=== PATIENT | female | born 1980 | race Hispanic/Latino ===

== ENCOUNTER 2022-10-22 21:56 | Emergency (ER) | payer MEDICAID, OTHER ==
[~2022-10-22] VITALS: Ht 152.4 cm; Wt 88.5 kg
[2022-10-22 22:01] VITALS: BP 167/86
[2022-10-22] MEDS ORDERED: SULF1TAB42 PO (22:46)
[2022-10-22] MEDS ORDERED: CEPH500B PO (22:46)
[2022-10-22] MEDS ORDERED: TETANUS/DIPHTHERIA TOXOID [ADULT] 0.5 ML VIAL IM ONE (22:57)
[2022-10-22] MEDS ORDERED: DIPH,PERTUSS(ACELL),TET VAC/PF 0.5 ML VIAL IM ONE (23:00)
== END 2022-10-22 23:01 | disposition home or self-care (01) ==
LOC: EDH 21:56
DX: L03.116 Cellulitis of left lower limb (principal); J45.909 Unspecified asthma, uncomplicated; E11.9 Type 2 diabetes mellitus without complications
CPT/HCPCS: 90471; 90714; 90715

== ENCOUNTER 2022-10-26 14:28 | Emergency (ER) | payer OTHER ==
[~2022-10-26] VITALS: Ht 147.3 cm; Wt 88.5 kg
[~2022-10-26 14:28] MED LIST: CEPH500B PO; SULF1TAB42 PO
[2022-10-26] MEDS ORDERED: CLINDAMYCIN IVPB 900MG/50ML 50 ML IV SCH (15:00)
[2022-10-26] MEDS ORDERED: 0.9%NACL 1000ML 1,000 ML IV ONE (15:00)
[2022-10-26 15:39] VITALS: BP 162/84
[2022-10-26 16:10] LABS: BASOPHILS % (AUTO) 0.5 % (0.0-5.0); EOSINOPHILS % (AUTO) 6.9 % (0.0-8.0); HEMATOCRIT 43.7 % (36-48); MEAN CORPUSCULAR HEMOGLOBIN 31.3 pg (27.0-33.0); MEAN CORPUSCULAR HGB CONC 35.7 g/dL (32.0-36.0); MEAN CORPUSCULAR VOLUME 87.6 fL (79-99); MONOCYTES % (AUTO) 6.2 % (3.0-13.0); PLATELET COUNT (AUTO) 276 K/uL (130-400); RED BLOOD CELL COUNT(AUTO) 4.99 MIL/uL (4.00-5.50); RED CELL DISTRIBUTION WIDTH 11.5 % (11.0-15.5); WHITE BLOOD COUNT (AUTO) 8.5 K/uL (4.8-10.8)
[2022-10-26] MEDS ORDERED: CLIN-141 PO (16:35)
[2022-10-26 16:53] LABS: CREATININE 0.8 mg/dL (0.5-1.5); POTASSIUM 3.8 mmol/L (3.5-5.1)
[2022-10-26 16:58] LABS: ALBUMIN 3.7 g/dL (3.5-5.0); TOTAL PROTEIN, SERUM 7.6 g/dL (6.0-8.3)
== END 2022-10-26 17:25 | disposition home or self-care (01) ==
LOC: EDH 14:28
DX: L02.416 Cutaneous abscess of left lower limb (principal); L03.116 Cellulitis of left lower limb; E11.9 Type 2 diabetes mellitus without complications; J45.909 Unspecified asthma, uncomplicated; Z90.49 Acquired absence of other specified parts of digestive tract; Z98.890 Other specified postprocedural states
CPT/HCPCS: 99285; 96365; 10060; 80053; 85025; 87040 ×2; 83605; 36415; 76882; J3490

== ENCOUNTER 2022-12-17 15:54 | Emergency (ER) | payer OTHER ==
[~2022-12-17] VITALS: Ht 149.9 cm; Wt 88.5 kg
[~2022-12-17 15:54] MED LIST changes: +CLIN-141 PO
[2022-12-17] MEDS ORDERED: KETOROLAC 15MG/ML VIAL (15MG/ML) IV ONE (16:30)
[2022-12-17 16:33] LABS: HEMATOCRIT 41.3 % (36-48); MEAN CORPUSCULAR HEMOGLOBIN 31.3 pg (27.0-33.0); MEAN CORPUSCULAR HGB CONC 35.6 g/dL (32.0-36.0); MEAN CORPUSCULAR VOLUME 87.9 fL (79-99); RED BLOOD CELL COUNT(AUTO) 4.7 MIL/uL (4.00-5.50); RED CELL DISTRIBUTION WIDTH 11.3 % (11.0-15.5); WHITE BLOOD COUNT (AUTO) 12.8 K/uL (4.8-10.8)
[2022-12-17 16:44] LABS: CREATININE 0.7 mg/dL (0.5-1.5)
[2022-12-17 16:48] LABS: ALBUMIN 3.7 g/dL (3.5-5.0); TOTAL PROTEIN, SERUM 7.3 g/dL (6.0-8.3)
[2022-12-17 17:20] LABS: APPEARANCE,URINE CLEAR (CLEAR); BILIRUBIN,URINE NEGATIVE (NEGATIVE); COLOR,URINE LIGHT-YELLOW (YELLOW); GLUCOSE, URINE (UA) >=1000 mg/dL (NEGATIVE); KETONES,URINE 20 mg/dL (NEGATIVE); LEUKOCYTE ESTERASE ,URINE NEGATIVE Leu/uL (NEGATIVE); NITRATE,URINE NEGATIVE (NEGATIVE); OCCULT BLOOD,URINE NEGATIVE (NEGATIVE); PROTEIN,URINE NEGATIVE (NEGATIVE); UROBILINOGEN,URINE 0.2 mg/dL (0.2-1.0)
[2022-12-17 17:28] LABS: BACTERIA,URINE RARE /HPF (None Seen); MUCUS,URINE RARE LPF (None Seen); SQUAMOUS EPITHELIAL CELL,UR RARE /HPF (0-2); WBC,URINE 0-1 /HPF (0-1)
[2022-12-17] MEDS ORDERED: MAGNESIUM 2GM PREMIX 50ML 50 ML IV SCH (17:30)
[2022-12-17] MEDS ORDERED: ONDA4TAB10 PO (17:36)
[2022-12-17 19:46] VITALS: BP 128/51
== END 2022-12-17 19:51 | disposition home or self-care (01) ==
LOC: EDH 15:54
DX: R20.2 Paresthesia of skin (principal); E83.42 Hypomagnesemia; R68.84 Jaw pain; J45.909 Unspecified asthma, uncomplicated; Z79.899 Other long term (current) drug therapy
CPT/HCPCS: 99284; 96365; 96366; 96375; 83735; 80053; 83690; 85027; 81001; 81025; 36415; J3475; J1885

== ENCOUNTER 2023-06-07 12:31 | Emergency (ER) | payer BC, OTHER ==
[~2023-06-07] VITALS: Ht 147.3 cm; Wt 88.5 kg
[~2023-06-07 12:31] MED LIST changes: +ONDA4TAB10 PO
[2023-06-07 12:46] VITALS: BP 188/92; PULSE 81; RESP 18
[2023-06-07] MEDS ORDERED: MORPHINE 4 MG SYG IM ONE (14:30)
[2023-06-07] MEDS ORDERED: GABA-529 PO (14:34)
[2023-06-07] MEDS ORDERED: PRED20TA3 PO (14:34)
[2023-06-07] MEDS ORDERED: [UNRECOGNIZED DRUG - CODE] OS (14:34)
== END 2023-06-07 14:44 | disposition home or self-care (01) ==
LOC: EDH 12:31
DX: G51.0 Bell's palsy (principal); J45.909 Unspecified asthma, uncomplicated; E11.9 Type 2 diabetes mellitus without complications
CPT/HCPCS: 99284; 96372; J2270

== ENCOUNTER 2024-08-13 18:57 | Emergency (ER) | payer BC ==
[~2024-08-13] VITALS: Ht 149.9 cm; Wt 99.8 kg
[~2024-08-13 18:57] MED LIST changes: +ATOR40TA69 PO; -CEPH500B PO; -CLIN-141 PO; +EMPA25TA PO; +INSU3INS3 SQ; +METF-444 PO; -ONDA4TAB10 PO; +PANT40TA54 PO; +SEMA1PEN3 SQ; -SULF1TAB42 PO
[2024-08-13] MEDS: HYDROcodone/acetaMINOPHEN 10/325 MG TAB PO ONE (20:03)
--- NOTE | 2024-08-13 21:15 | ERN ---
General Chief Complaint: Head Injury Stated Complaint: HEAD INJURY Time Seen by MD: 19:03 Time Seen by Midlevel: 19:03 Source: patient History of Present Illness Initial Comments Patient is a 44-year-old female being brought in by EMS for evaluation following a head injury. Patient states she had a trunk accidentally slammed on her head. No loss of consciousness is reported. Patient is not on any blood thinners. According to EMS patient had a small superficial laceration to the right parietal. No other symptoms reported at this Allergies: Coded Allergies: No Known Drug Allergies (Unverified Allergy, Unknown, 10/22/22) Home Meds Reported Medications Insulin Glargine,Hum.rec.anlog (Lantus Solostar) 100 Unit/Ml (3 Ml) Insuln.pen, 50 UNIT SQ HS for 30 Days, #15 ML 0 Refills 06/02/24 Semaglutide (Ozempic) 1 Mg/0.75 Ml (4 Mg/3 Ml) Pen.injctr, 0.25 MG SQ QWEEK for 30 Days, #3 ML 0 Refills OZEMPIC 0.25MG QWEEK(MONDAYS) PER PT ON HOLD UNTIL FURTHER ORDERS 06/02/24 Pantoprazole Sodium (Pantoprazole Sodium) 40 Mg Tablet.dr, 1 TAB PO DAILY for 30 Days, #30 TAB 0 Refills 06/02/24 Empagliflozin (Jardiance) 25 Mg Tablet, 1 TAB PO DAILY for 30 Days, #30 TAB 0 Refills 06/02/24 Metformin HCl (Metformin HCl) 500 Mg Tablet, 1 TAB PO BID for 30 Days, #60 TAB 0 Refills 06/02/24 Atorvastatin Calcium (LIPITOR) 40 Mg Tablet, 1 TAB PO DAILY for 30 Days, #30 TAB 0 Refills 06/02/24 Past Medical History Past Medical History: Diabetes-Type II, Hypertension Past Surgical History: Other, Surgical History Other: TUBAL LIGATION Social History Social History: Negative, Lives with family ROS Dictation CONSTITUTIONAL: Negative except for HPI HEAD/FACE: Negative except for HPI EENT: Negative except for HPI RESPIRATORY: Negative except for HPI GASTROINTESTINAL/ABDOMINAL: Negative except for HPI GENITOURINARY: Negative except for HPI MUSCULOSKELETAL: Negative except for HPI INTEGUMENTARY: Negative except for HPI NEUROLOGICAL/PSYCH: Negative except for HPI HEMATOLOGIC/LYMPHATIC: Negative except for HPI All Systems Negative, Except as noted above. 13 point review of systems assessed and all negative except for above. Physical Exam Physical Exam Dictation Vital Signs reviewed General Appearance: Alert, oriented x 3, no acute distress, well developed, nourished. Head and Face: non-traumatic. Eyes: PERRL, pink conjunctivas, eyelid no trauma, anterior chamber with arcus senilis. Ears: Pinnas intact and no signs of trauma or erythema ear canals clear and no discharge TM no erythema Nose: No discharge, no bleeding. Oropharynx: Mouth normal, tongue pink, pharynx clear,no erythema, tonsils no exudates, no abscesses noted, mucous membrane moist Neck: Supple, non-tender, no thyromegaly, no masses, no JVD, no bruits Breast:Deferred Chest:No tenderness, no crepitus, no paradoxical movement, no retractions Lungs:Clear, well-ventilated, symmetric, no rales, no wheezing, no rhonchi, no stridor, good breath sounds bilaterally Heart: Regular rate, regular rhythm, no murmur, no gallops Vascular: no peripheral edema, Abdomen: Soft, positive bowel sounds, nondistended, no guarding, nontender, no rebound, no masses no hepatomegaly, no splenomegaly, no Price's sign, no hernias. Rectal: Deferred Genital: Deferred Neurological: Normal speech, motor function intact, sensory function intact Musculoskeletal: Neck nontender, full range of motion, back nontender, full range of motion, Extremities: nontender, full range of motion Skin: Color pink, dry, no turgor, no rash, no lacerations, no abrasions, no contusions. Lymphatic: Deferred MDM MDM: Patient is a 44-year-old female being brought in by EMS for evaluation following a head injury. Patient states she had a trunk accidentally slammed on her head. No loss of consciousness is reported. Patient is not on any blood thinners. According to EMS patient had a small superficial laceration to the right parietal. No other symptoms reported at this. On physical examination there is a superficial laceration to the right parietal region. The laceration was thoroughly cleansed. No need for sutures or kervin at this time as laceration appears to be superficial. A CT scan of the brain was obtained which does not show any acute injury. Patient was observed in the ER for over 2 hours and has remained stable and asymptomatic. Patient will be discharged home with supportive management. Differential diagnosis: Closed head injury, concussion, subdural hematoma, intracranial bleed There are no social concerns with this patient. Prescription drug management Prescriptions will include: None Medical management and examination interpretation discussions were had by me with other qualified healthcare professionals as indicated for the patient's care. ED Course Orders Procedure Category Date Status Time Ct Head/Brain W/O CT 08/13/24 Resulted Contrast 19:09 Hydrocodone/Apap PHA 08/13/24 Complete 10/325 Tab ([place] 10) 20:00 Current Medications Medications (Trade) Dose Ordered Sig/Juan Luis Route PRN Reason Start Time Stop Time Status Last Admin Dose Admin Acetaminophen/ Hydrocodone Bitart (NORco 10) 1 tab ONCE ONCE PO 08/13/24 20:00 08/13/24 20:01 DC 08/13/24 20:03 Vital Signs Date Time Temp Pulse Resp B/P (MAP) Pulse Ox O2 Delivery O2 Flow Rate FiO2 08/13/24 21:53 97.0 84 20 124/89 98 Room Air* 0 21 08/13/24 20:56 97.2 92 18 118/84 98 Room Air* 0 21 08/13/24 19:45 97.9 99 20 124/86 98 Room Air* 0 21 08/13/24 18:58 98.2 76 16 165/86 98 Room Air [address] [address] IMAGING REPORT Signed PATIENT: EILEEN HERNANDES MR#: [id number] : 1980 SEX: F AGE: 44 LOCATION: ED ORDER 09 STATUS: REG ER REPORT#: [id number] SERVICE 08 REASON: head injury ORDERING PHYSICIAN: KENROY MURPHY PROCEDURE: HEAD WO - CT HEAD/BRAIN W/O CONTRAST CT HEAD/BRAIN W/O CONTRAST CLINICAL HISTORY: head injury COMPARISON: None TECHNIQUE: Multiple sequential axial images of the head were obtained from the base of the skull through vertex. CT was performed with one or more of the following dose reduction techniques: automated exposure control, adjustment of the mA and/or kV according to patient size, or use of iterative reconstruction technique FINDINGS: The brain parenchyma and CSF spaces are unremarkable. The orbital contents, paranasal sinuses and mastoid air cells are within normal limits. The calvarium is intact. IMPRESSION: Normal study DICTATED BY: MINERVA CASTILLO DO DATE: 08/13/242113 ELECTRONICALLY SIGNED BY: MINERVA CASTILLO DO DATE: 08/13/242117 DX & DISP Disposition: Discharge Departure Impression: Primary Impression: Closed head injury Condition: Stable Additional Instructions: Your CT scan does not show any evidence of a skull fracture or intracranial bleed. Please follow up with your primary care doctor in 2-3 days for repeat evaluation. Return to the ER for any new or worsening symptoms. Referrals: SELF,REFERRAL (PCP) I have reviewed the case, and I agree with, Diagnosis and Plan I performed the substantive portion of the visit. I have reviewed and personally made and approve the management plan that is documented in the note by myself or the BEREKET. I acknowledge for responsibility for the patient's management plan. KENROY MURPHY Aug 13, 2024 21:15
--- NOTE | 2024-08-13 21:18 | HMCIMG ---
CT HEAD/BRAIN W/O CONTRAST CLINICAL HISTORY: head injury COMPARISON: None TECHNIQUE: Multiple sequential axial images of the head were obtained from the base of the skull through vertex. CT was performed with one or more of the following dose reduction techniques: automated exposure control, adjustment of the mA and/or kV according to patient size, or use of iterative reconstruction technique FINDINGS: The brain parenchyma and CSF spaces are unremarkable. The orbital contents, paranasal sinuses and mastoid air cells are within normal limits. The calvarium is intact. IMPRESSION: Normal study
[2024-08-13 21:53] VITALS: BP 124/89; PULSE 84; RESP 20; TEMP 97; O2SAT 98
== END 2024-08-13 21:54 | disposition home or self-care (01) ==
LOC: EDH 18:57
DX: S09.8XXA Other specified injuries of head, initial encounter (principal); E11.9 Type 2 diabetes mellitus without complications; I10 Essential (primary) hypertension; Z79.84 Long term (current) use of oral hypoglycemic drugs; Z79.85 Long-term (current) use of injectable non-insulin antidiabetic drugs; Z79.899 Other long term (current) drug therapy; Z98.51 Tubal ligation status; W22.8XXA Striking against or struck by other objects, initial encounter; Y93.89 Activity, other specified; Y92.89 Other specified places as the place of occurrence of the external cause; Y99.8 Other external cause status
CPT/HCPCS: 70450; 99284

== ENCOUNTER 2024-09-30 08:09 | Observation (INO) | payer BC ==
[2024-09-28 13:25] LABS: BASOPHILS # (AUTO) 0.03 K/uL (0.00-0.20); BASOPHILS % (AUTO) 0.3 % (0.0-5.0); EOSINOPHILS # (AUTO) 0.46 K/uL (0.00-0.70); EOSINOPHILS % (AUTO) 4.6 % (0.0-8.0); HEMATOCRIT 45.2 % (36-48); IMMATURE GRANULOCYTE ABSOLUTE 0.03 K/uL (0-1); LYMPHOCYTES # (AUTO) 2.7 K/uL (1.0-4.8); LYMPHOCYTES % (AUTO) 26.2 % (21.0-51.0); MEAN CORPUSCULAR HEMOGLOBIN 31.1 pg (27.0-33.0); MEAN CORPUSCULAR HGB CONC 34.7 g/dL (32.0-36.0); MEAN CORPUSCULAR VOLUME 89.5 fL (79-99); MONOCYTES # (AUTO) 0.6 K/uL (0.1-1.0); MONOCYTES % (AUTO) 5.5 % (3.0-13.0); NEUTROPHILS # (AUTO) 6.4 K/uL (1.8-7.7); NEUTROPHILS % (AUTO) 63.1 % (40.0-77.0); PLATELET COUNT (AUTO) 231 K/uL (130-400); RED BLOOD CELL COUNT(AUTO) 5.05 MIL/uL (4.00-5.50); RED CELL DISTRIBUTION WIDTH 11.3 % (11.0-15.5); WHITE BLOOD COUNT (AUTO) 10.1 K/uL (4.8-10.8)
--- NOTE | 2024-09-28 13:25 | EKG ---
[facility] Test Date: 2024-09-28 Test Time: 14:13:28 Pat Name: EILEEN HERNANDES Department: [facility] Room: Gender: F Medical Detail Representative: [id number] : 1980 Requested By: JAGRUTI FRANCES Order Number: [id number] Reading MD: Jovanny Iqbal Measurements Intervals [place] Rate: 66 P: 26 W[place]: 166 QRS: 82 QRSD: 124 T: 32 QT: 448 QTc: 471 Interpretive Statements Sinus rhythm Nonspecific intraventricular conduction delay Compared to ECG 06/02/2024 10:22:14 Intraventricular conduction delay now present Left ventricular hypertrophy no longer present Early repolarization no longer present Electronically Signed On 09-29-2024 11:53:15 [facility] by Jovanny Iqbal Please click the below link to view image of tracing.
[2024-09-28 13:32] LABS: CREATININE 0.6 mg/dL (0.5-1.0); POTASSIUM 3.3 mmol/L (3.5-5.1)
[2024-09-28 13:44] VITALS: BP 128/76; PULSE 74; RESP 15; TEMP 97.3
[~2024-09-30] VITALS: Ht 147.3 cm; Wt 92.9 kg
[2024-09-30] VITALS (25 sets, daily range): BP systolic 117–155; BP diastolic 62–85; PULSE 53–81; RESP 14–20; TEMP 97.7–98.2; O2SAT 97–98
[2024-09-30] MEDS: BUPIvacaine/PF 0.5% 30ML VIAL ONE
[~2024-09-30 08:09] MED LIST changes: +BREYNA IH; +MONT-39 PO; -PANT40TA54 PO; -SEMA1PEN3 SQ; +VOQUEZNA PO
[2024-09-30] MEDS: metRONIDazole 500MG/100ML BAG 200 ML ONE (08:58)
[2024-09-30] MEDS: 0.9%NACL 1000ML 1,000 ML IV ONE (08:58)
[2024-09-30] MEDS: ceFAZolin SODIUM 2 GM VIAL ONE (08:58)
[2024-09-30] MEDS ORDERED: LIDOCAINE PF 100MG/5ML (2%) SYRINGE 5ML ONE (11:47)
[2024-09-30] MEDS ORDERED: proPOFol 10 MG/ML 20ML VIAL IV ONE (11:47)
[2024-09-30] MEDS ORDERED: rocuRONium bROMide 10MG/1ML 5ML VL ONE (11:47)
[2024-09-30] MEDS ORDERED: FENTanyl CITRate PF 50 MCG/1 ML 2ML VIAL ONE (11:48)
[2024-09-30] MEDS: INDOCYANINE GREEN 25 MG VIAL IJ ONE (12:42)
[2024-09-30] MEDS ORDERED: ketaMINE 50MG/ML SYRINGE 50 MG/ML DISP.SYRIN ONE (12:46)
[2024-09-30] MEDS ORDERED: NEOSTIGMINE METHYLSULFATE 1MG/ML IV ONE (13:40)
[2024-09-30] MEDS ORDERED: GLYCOPYRROLATE 0.2 MG/ML 5 ML VIAL ONE (13:40)
[2024-09-30] MEDS ORDERED: dexaMETHasone SOD PHOSPHATE 10MG/ML 1ML VIAL ONE (13:40)
[2024-09-30] MEDS ORDERED: ondanSETRON 4MG INJ ONE (13:40)
[2024-09-30] MEDS ORDERED: MIDAZOLAM HCL 1 MG/ML 2ML VIAL ONE (13:49)
--- NOTE | 2024-09-30 14:28 | OP ---
Operative Note: DATE OF PROCEDURE: 09/30/24 SURGEON: JAGRUTI FRANCES MD SILVERING DEPARTMENT SUPERVISOR: Dariel Frances MD ANESTHESIA: General and Local ANESTHESIOLOGIST/SENIOR RESEARCH ANALYST: [facility] [place] anesthesia team PREOPERATIVE DIAGNOSIS: Morbid obesity and associated comorbid conditions POSTOPERATIVE DIAGNOSIS: As above SYNOPSIS: Sleeve gastrectomy performed without incident PROCEDURE: 1. Robotic assisted sleeve gastrectomy 2. Omentoplasty to reinforce cut edge of the stomach 3. EGD ESTIMATED BLOOD LOSS: min, <30cc INDICATIONS: as above DESCRIPTION OF PROCEDURE: After standard precautions and preparations were undertaken a Veress needle and optical trocar were used to enter the abdominal cavity. All other instruments were placed under direct vision. The robotic system was docked in the standard fashion. We began our dissection by mobilizing the greater curve of the stomach. Once this was completed we passed a 40 Czech bougie down into the stomach to decompress the stomach and allow for proper sizing during the stapling portion of the case. A linear stapler with staple line reinforcement was used to initiate stapling. Care was taken to avoid tightening the incisura, twisting or turning of the body of the stomach, and avoid stapling onto the GE junction. When the stapling was complete the bougie was removed and the EGD was passed down in order to examined everybody the mucosal surface of the stomach. The stomach appeared well perfused and the size and shape of the stomach was appropriate. We insufflated under fluid with no signs of leak or problem. The scope was removed without incident. I performed an omentoplasty by suturing the nearby omentum to the cut edge of the stomach in order to reinforced the closure of the stomach and stabilize the free edge of the stomach. The partial gastrectomy specimen was removed from the lateral trocar site and the fascia was closed to prevent future hernia. At the end of the case all instrument counts were verified as correct including needles and sponges. JAGRUTI FRANCES MD Sep 30, 2024 14:28
[2024-09-30] MEDS: PROMETHAZINE HCL 25 MG/ML 1ML AMPULE IM ONE (14:55)
[2024-09-30] MEDS: ondanSETRON 4MG INJ ONE (14:55)
[2024-09-30] MEDS: MEPERIDINE-PF 50 MG/ML SYG ONE (14:57)
[2024-09-30] MEDS ORDERED: PROCHLORPERAZINE 10MG/2ML INJ IV PRN (15:00)
[2024-09-30] MEDS ORDERED: ENOXAPARIN SODIUM 30 MG/0.3 ML SQ SCH (15:00)
[2024-09-30] MEDS ORDERED: HYDROcod/acetaMINOPHEN 7.5/325 MG 15 ML UDCUP PO PRN (15:00)
[2024-09-30] MEDS ORDERED: hydroMORPHone 1 MG INJ IVP PRN (15:00)
--- NOTE | 2024-09-30 15:01 | PN ---
GENERAL SURGERY PROGRESS NOTE Date/Time Patient Seen: [09/30/2024, 1445 ] Problem List: [ ] Interval History: [Postop day 0. Pain tolerable with p.r.n. medication. ] Physical Examination: ABD: Incisions clean, dry and intact, Dermabond in place Vital Signs (last 8hr) Date Time Temp Pulse Resp B/P (MAP) Pulse Ox O2 Delivery O2 Flow Rate FiO2 09/30/24 14:34 97.7 55 17 124/74 100 Nonrebreathing Mask 10.0 09/30/24 08:30 97.9 76 16 133/76 98 Room Air Laboratory: [ ] Chemistry Labs: Test 09/30/24 14:42 Range/Units Whole Blood Glucose 122 H 70-110 MG/DL Diagnostics / Radiology: [Copy/Paste Echos/Imaging Report here] Impression and Plan: [Plan is for discharge home in the next day or two as long as patient tolerating p.o. intake, ambulatory and pain under control. Discussed with patient and family. They understand and agree. ] JAGRUTI FRANCES MD Sep 30, 2024 15:01
[2024-09-30] MEDS: metoCLOPRAmide 10 MG/2 ML VIAL ONE (15:41)
[2024-09-30] MEDS: ketOROlac 15MG/ML VIAL (15MG/ML) ONE (16:10)
[2024-09-30] MEDS: acetaMINOPHEN 100 ML ONE (17:37)
[2024-09-30] MEDS: FAMOTIDINE 20MG VIAL IV ONE (17:37)
[2024-09-30] MEDS: LACTATED RINGERS 1000ML 1,000 ML IV SCH (17:39)
[2024-09-30] MEDS: ENOXAPARIN SODIUM 40 MG/0.4 ML SYRINGE SQ SCH (17:52)
[2024-09-30] MEDS: ondanSETRON 4MG INJ IVP PRN (18:39)
[2024-09-30] MEDS: FAMOTIDINE 20MG VIAL IV SCH (19:32)
[2024-09-30] MEDS: ketOROlac 30MG VIAL (30MG/ML) IV PRN (23:33)
[2024-10-01 00:05] VITALS: BP 146/74; PULSE 56; RESP 19; TEMP 98.6
[2024-10-01 04:00] VITALS: BP 137/75; PULSE 60; RESP 18; TEMP 98.4
--- NOTE | 2024-10-01 04:00 | NUR ---
patient ambulated 600 feet with not discomfort.
--- NOTE | 2024-10-01 06:30 | NUR ---
patient ambulated 600 ft with no problems, no discomfort.
[2024-10-01 07:30] VITALS: O2SAT 96
[2024-10-01 08:00] VITALS: BP 139/72; PULSE 57; RESP 16; TEMP 98.2
--- NOTE | 2024-10-01 10:22 | DS ---
Problems: (1) Morbid (severe) obesity due to excess calories Discharge Summary Assessment Patient is a pleasant 44-year-old female status post vertical sleeve gastrectomy done by Dr. Eliel Lopez. The patient is awake alert and oriented x3 and resting comfortably in bed accompanied by spouse. The patient is tolerating a liquid diet very well without any upper or lower GI issues. Patient has been passing gas, voiding freely and ambulating. The patient is endorsing pain that is tolerable p.r.n. medications. Vital signs stable. Patient is clinically stable. The plan is to discharge the patient home today. Hospital Course Postoperative day 1 We will continue to monitor and treat pain as needed. GI/DVT prophylaxis recommended encouraged. Incision care, hydration, activity and dietary restrictions discussed with the patient. The patient understands and agrees. The plan is to discharge the patient home today follow up outpatient in 5-7 days. Postop meds sent by my office staff. KENROY YARBROUGH Oct 01, 2024 10:22
--- NOTE | 2024-10-01 10:30 | NUR ---
Order received and spoke to nurse who states patient has been walking in the halls. DC from PT no skilled need.
[2024-10-01 12:00] VITALS: BP 119/70; PULSE 58; RESP 17; TEMP 98.5
[2024-10-01] MEDS ORDERED: hydroMORPHone 0.5 MG SYG (0.5MG/0.5ML) IVP PRN (12:00)
[2024-10-01] MEDS ORDERED: ketOROlac 15MG/ML VIAL (15MG/ML) IV PRN (13:00)
--- NOTE | 2024-10-01 13:53 | NUR ---
Nutrition consult per Pt bariatric Reviewed labs, notes, and medications. in room during visit. Pt reported 50%PO intake, denied N/V, belching, good appetite, ordered MVI for bariatric, had RD visit, has PCP, has been walking around, talked to resident services coordinator. RD reviewed educational material for post-op diet recommendations. Pt was informed of importance of lifelong vitamin/mineral supplementation, choosing protein first during meals (pt was educated on higher protein requirements), choosing low calorie, sugar free, carbonated free and caffeine beverages. RD also informed pt on lifelong commitment to exercise and dietary recommendations for optimal success post surgery. RD encouraged getting blood work every 3 to 6 months, including B-vitamins, Pt verbalized understanding. RD informed Pt on moving around after procedure to prevent DVT, Pt verbalized understanding. Pt was encouraged to contact RD as questions arise and to attend support groups. Fair compliance suspected. Pt will benefit from outpatient bariatric dietitian follow up post procedure. Pt to follow up with PCP for labs. Recommendations: -Continue phase 1 bariatric diet for 1 week -Monitor electrolytes -Monitor diet tolerance -Monitor BM -Monitor wts -Monitor PO intake -Recommend Pt to follow up with PCP -Monitor goals of care RD available for consult per protocol Addendum: 10/01/24 at [address] Amended: Links added.
--- NOTE | 2024-10-01 16:50 | NUR ---
DCP - Patient discharged. Attempted to do IA, patient already discharged. Notified CM. Addendum: 10/01/24 at 1651 by MIGUEL NOONAN RN CM Amended: Links added.
== END 2024-10-01 15:30 | disposition home or self-care (01) ==
LOC: DAH 08:09 → 4CH 08:10 → INTOOBSV 08:10 → DAH 08:10
PROVIDERS: ADMIT Surgery; ATTEND Surgery
DX: E66.01 Morbid (severe) obesity due to excess calories (principal); R12 Heartburn; R10.10 Upper abdominal pain, unspecified; K29.70 Gastritis, unspecified, without bleeding; K76.0 Fatty (change of) liver, not elsewhere classified; F32.A Depression, unspecified; J45.909 Unspecified asthma, uncomplicated; E11.9 Type 2 diabetes mellitus without complications; I10 Essential (primary) hypertension; Z68.41 Body mass index [BMI] 40.0-44.9, adult; Z79.899 Other long term (current) drug therapy
CPT/HCPCS: 80048; 84703; 85025; 86850; 86900; 86901; 36415; 93005; 43775; 96374; 96372 ×2; 96375; 82948 ×5; 88312; 88307; 96376; A6260; S2900; G0378 ×3; A4663; A4215 ×2; J3490 ×7; J3010; J1100; J7030; J2550; J2003; J2250; J2704; J2405 ×3; J1885 ×3; J2710; J0665; J1650 ×2; J2175; J2765; J0690; A4930; A4223 ×2; A4213; A4222; A4221; A4216; A4600; J7120; 43235

== ENCOUNTER 2024-10-14 21:52 | Emergency (ER) | payer BC ==
[~2024-10-14] VITALS: Ht 147.3 cm; Wt 88.5 kg
--- NOTE | 2024-10-14 22:30 | ERN ---
General Chief Complaint: Mechanical Fall Stated Complaint: FALL Time Seen by MD: 21:57 Time Seen by Midlevel: 21:57 Source: patient History of Present Illness Initial Comments 44-year-old female who presents to the emergency department due to a fall that occurred approximately 8:30 p.m.. Patient reports she tripped and fell on the porch steps. Complaining of left hand pain, right knee pain, and abdominal pain. Patient had a gastric bypass performed two weeks ago on 09/30/[address] Lopez. The patient denies any nausea, vomiting, loss of consciousness, difficulty breathing, chest pain or further associated symptoms. PMHx DM, HTN Allergies: Coded Allergies: No Known Drug Allergies (Unverified Allergy, Unknown, 10/22/22) Home Meds Reported Medications Insulin Glargine,Hum.rec.anlog (Lantus Solostar) 100 Unit/Ml (3 Ml) Insuln.pen, 25 UNIT SQ DAILY, SYRINGE 09/28/24 [Breyna] No Conflict Check, 1 PUFF IH BID 09/28/24 Atorvastatin Calcium (LIPITOR) 40 Mg Tablet, 40 MG PO HS, TAB 09/28/24 Empagliflozin (Jardiance) 25 Mg Tablet, 25 MG PO DAILY, TAB 09/28/24 [Voquezna] No Conflict Check, 20 MG PO HS 09/28/24 Montelukast Sodium (Montelukast Sodium) 10 Mg Tablet, 10 MG PO HS, TAB 09/28/24 Metformin HCl (Metformin HCl) 500 Mg Tablet, 500 MG PO BID, TAB 09/28/24 Past Medical History Past Medical History: Diabetes-Type II, Hypertension Past Surgical History: Other, Bariatric Surgery, Surgical History Other: TUBAL LIGATION Social History Social History: Negative, Lives with family ROS Dictation Constitutional: Negative for fever,chills, and weight loss Eyes: Negative for injury, pain,redness, and discharge ENT: Negative for injury,pain or swelling Cardiovascular: Negative for chest pain, palpitations, and edema Respiratory: Negative for shortness of breath, cough, and wheezing, Abdomen/GI: Positive for abdominal pain Negative for abdominal pain, nausea, vomiting, diarrhea, and constipation Back: Negative for injury and pain : Negative for painful urination, bleeding or discharge MS/Extremity: Positive for left wrist pain, right knee pain Negative for injury and deformity Skin: Negative for rash, and discoloration Neuro: Negative for headache, weakness, numbness, tingling, and seizure Psych: Negative for suicide ideation, homicidal ideation, and hallucinations Physical Exam Physical Exam Dictation General: awake, alert, no acute distress Head/Face: Normocephalic, atraumatic Eyes: PERRL, EOMI, normal conjunctiva ENT: oral cavity clear, oral mucosa moist Neck: Supple, normal range of motion Cardiovascular: RRR, normal S1/S2 Respiratory: CTAB, no respiratory distress, no rales or wheezes Abdomen: Soft, generalized tenderness, non-distended, normal bowel sounds, no guarding or rebound. Skin: Warm, dry, normal turgor, no rash MS/Extremity: Pulses equal, no cyanosis, neurovascular intact, FROM. Full range of motion of the left wrist with mild tenderness to palpation. Full range of motion of the right knee mild tenderness to palpation to the lower aspect of the knee. No obvious deformities. Neuro: COAx4, GCS 15, strength 5/5, CN 2-12 intact, normal cerebellar exam, normal gait, Psych: Normal behavior, mood, and affect normal Results Laboratory and Microbiology Lab and Micro Result Laboratory Tests Test 10/14/24 22:55 White Blood Count 8.7 K/uL (4.8-10.8) Red Blood Count 4.31 MIL/uL (4.00-5.50) Hemoglobin 13.1 g/dL (12.0-16.0) Hematocrit 39.3 % (36-48) Mean Corpuscular Volume 91.2 fL (79-99) Mean Corpuscular Hemoglobin 30.4 pg (27.0-33.0) Mean Corpuscular Hemoglobin Concent 33.3 g/dL (32.0-36.0) Red Cell Distribution Width 11.7 % (11.0-15.5) Platelet Count 250 K/uL (130-400) Mean Platelet Volume 10.1 fL (7.5-10.5) Immature Granulocyte % (Auto) 0.1 % (0-1) Neutrophils (%) (Auto) 55.6 % (40.0-77.0) Lymphocytes (%) (Auto) 33.1 % (21.0-51.0) Monocytes (%) (Auto) 6.6 % (3.0-13.0) Eosinophils (%) (Auto) 4.4 % (0.0-8.0) Basophils (%) (Auto) 0.2 % (0.0-5.0) Neutrophils # (Auto) 4.8 K/uL (1.8-7.7) Lymphocytes # (Auto) 2.9 K/uL (1.0-4.8) Monocytes # (Auto) 0.6 K/uL (0.1-1.0) Eosinophils # (Auto) 0.38 K/uL (0.00-0.70) Basophils # (Auto) 0.02 K/uL (0.00-0.20) Absolute Immature Granulocyte (auto 0.01 K/uL (0-1) Nucleated Red Blood Cells 0.0 % (0.0-0.19) Sodium Level 140 mmol/L (136-145) Potassium Level 3.4 mmol/L (3.5-5.1) L Chloride Level 103 mmol/L (101-111) Carbon Dioxide Level 33 mmol/L (21-32) H Blood Urea Nitrogen 23 mg/dL (7-18) H Creatinine 0.7 mg/dL (0.5-1.0) Glomerular Filtration Rate Calc 110 mL/min (>90) Random Glucose 102 mg/dL (70-105) Total Calcium 9.1 mg/dL (8.5-10.1) Labs Reviewed?: Yes MDM MDM: Differential diagnosis: Rationale: 44-year-old female who presents to the emergency department due to a fall that occurred approximately 8:30 p.m.. Patient reports she tripped and fell on the porch steps. Complaining of left hand pain, right knee pain, and abdominal pain. Patient had a gastric bypass performed two weeks ago on 09/30/[address] Lopez. The patient denies any nausea, vomiting, loss of consciousness, difficulty breathing, chest pain or further associated symptoms. PMHx DM, HTN Labs obtained are within normal limits. X-rays of the left hand, wrist and right tibia fibula/knee were obtained with no indications of fractures or dislocations. Per physical examination patient has full range of motion of the left hand/wrist, right knee and lower extremity, able to apply weight with normal gait, neurovascularly intact, generalized abdominal tenderness. CT abdomen and pelvis obtained indicating 3 cm seroma at the right lower quadrant otherwise no acute findings noted. Patient was administered morphine in the ED and verbalized pain had improved. Advised to follow up with PCP. Return to the emergency department if any worsening symptoms. Patient verbalized understanding. Patient stable for discharge. There are no social concerns with this patient. I independently interpreted the test that were performed, results were reviewed by me and considered findings on radiology if ordered. Medical management and examination interpretation discussions were had by me with other qualified healthcare professionals as indicated for the patient's care. ED Course Orders Procedure Category Date Status Time Ct Abdomen/Pelvis CT 10/14/24 Resulted W/Contrast 22:06 Hand 3+Vws Lt RAD 10/14/24 Taken 22: Tibia/Fibula 2vws Rt RAD 10/14/24 Taken 22:06 Cbc With Differential LAB 10/14/24 Complete 22:06 Basic Metabolic Panel LAB 10/14/24 Complete 22:06 Morphine 2mg Syg PHA 10/14/24 Complete (Morphine 2mg Syg) 22:30 Ondansetron 4mg Inj PHA 10/14/24 Complete (Zofran 4mg Inj) 22:30 Iohexol (Omnipaque) PHA 10/14/24 Complete 23:23 Morphine 2mg Syg PHA 10/15/24 Complete (Morphine 2mg Syg) 01:00 Current Medications Medications (Trade) Dose Ordered Sig/Juan Luis Route PRN Reason Start Time Stop Time Status Last Admin Dose Admin Iohexol (Omnipaque) 35,000 mg STK-MED ONCE IV 10/14/24 23:23 10/14/24 23:23 DC Morphine Sulfate (morPHINE 2MG SYG) 2 mg ONCE ONCE IM 10/15/24 01:00 10/15/24 01:01 DC 10/15/24 01:01 Morphine Sulfate (morPHINE 2MG SYG) 2 mg ONCE ONCE IVP 10/14/24 22:30 10/14/24 22:31 DC 10/14/24 22:54 Ondansetron HCl (zoFRAN 4MG INJ) 4 mg ONCE ONCE IVP 10/14/24 22:30 10/14/24 22:31 DC 10/14/24 22:54 Vital Signs Date Time Temp Pulse Resp B/P (MAP) Pulse Ox O2 Delivery O2 Flow Rate FiO2 10/15/24 01:02 98.6 66 18 130/70 100 Room Air* 0 21 3/6/25 21:53 97.9 87 20 130/98 99 Room Air DX & DISP Disposition: Discharge Departure Impression: Primary Impression: Fall Additional Impression: Wellness examination Condition: Stable Additional Instructions: Discharge home. Rest. Follow up with primary care DrRocio in 24 hours. Return to the ER for any acute changes or worsening symptoms. If any medications were prescribed take as directed. Okay to continue home medications unless otherwise discussed during your visit in the emergency room today. Patient was also advised to follow-up with primary care physician in 1 to 2 days for continued monitoring. Referrals: ADOLFO BAZAN PA-C (PCP) I performed the substantive portion of the visit. I have reviewed and personally made and approve the management plan that is documented in the notes by myself or the BEREKET. I acknowledge full responsibility for the patient's management plan. MILTON ROBBINS Oct 14, 2024 22:30
[2024-10-14] MEDS: morPHINE 2 MG SYG IVP ONE (22:54)
[2024-10-14] MEDS: ondanSETRON 4MG INJ IVP ONE (22:54)
[2024-10-14 23:14] LABS: BASOPHILS # (AUTO) 0.02 K/uL (0.00-0.20); BASOPHILS % (AUTO) 0.2 % (0.0-5.0); EOSINOPHILS # (AUTO) 0.38 K/uL (0.00-0.70); EOSINOPHILS % (AUTO) 4.4 % (0.0-8.0); HEMATOCRIT 39.3 % (36-48); IMMATURE GRANULOCYTE ABSOLUTE 0.01 K/uL (0-1); LYMPHOCYTES # (AUTO) 2.9 K/uL (1.0-4.8); LYMPHOCYTES % (AUTO) 33.1 % (21.0-51.0); MEAN CORPUSCULAR HEMOGLOBIN 30.4 pg (27.0-33.0); MEAN CORPUSCULAR HGB CONC 33.3 g/dL (32.0-36.0); MEAN CORPUSCULAR VOLUME 91.2 fL (79-99); MONOCYTES # (AUTO) 0.6 K/uL (0.1-1.0); MONOCYTES % (AUTO) 6.6 % (3.0-13.0); NEUTROPHILS # (AUTO) 4.8 K/uL (1.8-7.7); NEUTROPHILS % (AUTO) 55.6 % (40.0-77.0); PLATELET COUNT (AUTO) 250 K/uL (130-400); RED BLOOD CELL COUNT(AUTO) 4.31 MIL/uL (4.00-5.50); RED CELL DISTRIBUTION WIDTH 11.7 % (11.0-15.5); WHITE BLOOD COUNT (AUTO) 8.7 K/uL (4.8-10.8)
[2024-10-14 23:22] LABS: CREATININE 0.7 mg/dL (0.5-1.0); POTASSIUM 3.4 mmol/L (3.5-5.1)
[2024-10-14] MEDS ORDERED: IOHEXOL 350 MG/ML 100ML INFUS..BTL IV ONE (23:23)
--- NOTE | 2024-10-15 00:20 | HMCIMG ---
CT ABDOMEN/PELVIS W/CONTRAST HISTORY: Status post fall COMPARISON: 05/30/2024 TECHNIQUE: Multiple sequential axial images of the abdomen and pelvis were obtained from the dome of the diaphragm through symphysis pubis. Patient was given 100 cc of through intravenous route. Oral contrast was not given. FINDINGS: No pleural effusion is seen bilaterally. There is no evidence of parenchymal disease or pulmonary nodule of the visualized lower lungs. Degenerative changes of the thoracolumbar spine are present. The heart is not enlarged. Liver is enlarged and fatty changes measuring 22 cm. There is right hepatic cyst measuring 2.7 cm. The liver, spleen, adrenal glands and pancreas are unremarkable. There is no evidence of hydronephrosis bilaterally. No evidence of renal stone is seen. Fecal material is seen in the colon. There are normal size retroperitoneal and mesenteric lymph nodes. No ascites is seen. Atherosclerotic changes are present. Pelvic sidewalls are symmetric bilaterally. Bladder is poorly distended. There is fluid-filled structure measuring 3 cm in the right anterior lower abdominal wall suggestive of seroma. There is diverticulosis. IMPRESSION: 1. There is fluid-filled structure measuring 3 cm in the right anterior lower abdominal wall suggestive of seroma. There is diverticulosis. No ascites. CT was performed with one or more following dose reduction techniques: automated exposure control, adjustment of the mA and kv according to patient's size, or use of a iterative reconstruction technique.
[2024-10-15] MEDS: morPHINE 2 MG SYG IM ONE (01:01)
[2024-10-15 01:02] VITALS: BP 130/70; PULSE 66; RESP 18; TEMP 98.6; O2SAT 100
--- NOTE | 2024-10-15 09:39 | HMCIMG ---
LEFT HAND RADIOGRAPHS - 3 VIEWS INDICATION: Pain after fall COMPARISON: None FINDINGS: AP, lateral, and oblique views. No acute fracture of subluxation identified. Scaphoid bone is intact. Carpal alignment and ulnar variance is within normal limits. No radiopaque foreign body noted. IMPRESSION: No evidence for fracture or subluxation.
--- NOTE | 2024-10-15 09:40 | HMCIMG ---
RIGHT TIBIA AND FIBULA RADIOGRAPHS - 2 VIEWS INDICATION: Pain COMPARISON: None. FINDINGS: AP and lateral views. No acute fracture or subluxation identified. 4 mm chronic well-corticated loose ossific body within the posterior recess of the right knee joint midline. Subcentimeter plantar calcaneal spur. IMPRESSION: No evidence for fracture or dislocation.
== END 2024-10-15 01:18 | disposition home or self-care (01) ==
LOC: EDH 21:52
DX: M25.561 Pain in right knee (principal); M79.642 Pain in left hand; E11.9 Type 2 diabetes mellitus without complications; I10 Essential (primary) hypertension; Z79.4 Long term (current) use of insulin; Z79.84 Long term (current) use of oral hypoglycemic drugs; Z98.51 Tubal ligation status; Z98.84 Bariatric surgery status; W10.8XXA Fall (on) (from) other stairs and steps, initial encounter; Y93.89 Activity, other specified; Y92.89 Other specified places as the place of occurrence of the external cause; Y99.8 Other external cause status
CPT/HCPCS: 99284; 74177; 96374; 96375; 80048; 85025; 36415; 73130; 73590; 96372; J2270 ×2; J2405; Q9967

== ENCOUNTER 2024-11-28 23:11 | Emergency (ER) | payer BC ==
[~2024-11-28] VITALS: Ht 149.9 cm; Wt 77.1 kg
--- NOTE | 2024-11-28 23:13 | NUR ---
COVID, FLU AND STREP SWABS COLLECTED AND SENT
[2024-11-28 23:36] LABS: RAPID GROUP A STREP negative (NEGATIVE)
[2024-11-28 23:39] LABS: SARS-CoV-2, RNA, NAAT NEGATIVE SARS CoV-2 (NEGATIVE)
[2024-11-28 23:46] LABS: INFLUENZA TYPE A Negative For Type A (NEGATIVE); INFLUENZA TYPE B Negative For Type B (NEGATIVE)
[2024-11-29] MEDS: dexaMETHasone SOD PHOSPHATE 4 MG/ML 1ML VIAL IM ONE (00:07)
[2024-11-29 00:23] LABS: CREATININE 0.9 mg/dL (0.5-1.0); POTASSIUM 3.3 mmol/L (3.5-5.1)
[2024-11-29 00:34] LABS: BASOPHILS # (AUTO) 0.02 K/uL (0.00-0.20); BASOPHILS % (AUTO) 0.3 % (0.0-5.0); EOSINOPHILS # (AUTO) 0.38 K/uL (0.00-0.70); EOSINOPHILS % (AUTO) 6.3 % (0.0-8.0); HEMATOCRIT 40.6 % (36-48); IMMATURE GRANULOCYTE ABSOLUTE 0.01 K/uL (0-1); LYMPHOCYTES # (AUTO) 1.4 K/uL (1.0-4.8); LYMPHOCYTES % (AUTO) 23.3 % (21.0-51.0); MEAN CORPUSCULAR VOLUME 91.4 fL (79-99); MONOCYTES # (AUTO) 0.4 K/uL (0.1-1.0); MONOCYTES % (AUTO) 7.1 % (3.0-13.0); NEUTROPHILS # (AUTO) 3.8 K/uL (1.8-7.7); NEUTROPHILS % (AUTO) 62.8 % (40.0-77.0); PLATELET COUNT (AUTO) 175 K/uL (130-400); RED BLOOD CELL COUNT(AUTO) 4.44 MIL/uL (4.00-5.50); RED CELL DISTRIBUTION WIDTH 12.1 % (11.0-15.5)
[2024-11-29 00:35] LABS: APPEARANCE,URINE CLEAR (CLEAR); BILIRUBIN,URINE NEGATIVE (NEGATIVE); COLOR,URINE YELLOW (YELLOW); GLUCOSE, URINE (UA) NEGATIVE (NEGATIVE); KETONES,URINE NEGATIVE (NEGATIVE); LEUKOCYTE ESTERASE ,URINE NEGATIVE Leu/uL (NEGATIVE); NITRATE,URINE NEGATIVE (NEGATIVE); PROTEIN,URINE NEGATIVE (NEGATIVE); UROBILINOGEN,URINE 0.2 mg/dL (0.2-1.0)
[2024-11-29 00:40] LABS: ADD UA MICROSCOPIC YES; BACTERIA,URINE RARE /HPF (None Seen); MUCUS,URINE RARE LPF (None Seen); SQUAMOUS EPITHELIAL CELL,UR FEW /HPF (0-2)
[2024-11-29] MEDS ORDERED: METH4TAB3 PO (00:52)
[2024-11-29] MEDS ORDERED: BENZ-39 PO (00:52)
--- NOTE | 2024-11-29 00:54 | ERN ---
General Chief Complaint: Flu Symptoms Stated Complaint: FEVER, BODYACHES, CHILLS Time Seen by MD: 23:15 Time Seen by Midlevel: 23:15 Source: patient History of Present Illness Initial Comments Patient is an 44-year-old female who presents to the emergency department for evaluation of flu-like symptoms that started three days ago. Symptoms consist of chills, dry cough, body aches, and some mild shortness of breath. Three other people in her household have similar symptoms. She reports self medicating with azithromycin and some amoxicillin with no improvement. Allergies: Coded Allergies: No Known Drug Allergies (Unverified Allergy, Unknown, 10/22/22) Home Meds Reported Medications Insulin Glargine,Hum.rec.anlog (Lantus Solostar) 100 Unit/Ml (3 Ml) Insuln.pen, 25 UNIT SQ DAILY, SYRINGE 09/28/24 [Breyna] No Conflict Check, 1 PUFF IH BID 09/28/24 Atorvastatin Calcium (LIPITOR) 40 Mg Tablet, 40 MG PO HS, TAB 09/28/24 Empagliflozin (Jardiance) 25 Mg Tablet, 25 MG PO DAILY, TAB 09/28/24 [Voquezna] No Conflict Check, 20 MG PO HS 09/28/24 Montelukast Sodium (Montelukast Sodium) 10 Mg Tablet, 10 MG PO HS, TAB 09/28/24 Metformin HCl (Metformin HCl) 500 Mg Tablet, 500 MG PO BID, TAB 09/28/24 Past Medical History Past Medical History: Asthma, Diabetes-Type II, Hypertension, Other Medical History Other: MRSA Past Surgical History: Appendectomy, Other, BTL, Bariatric Surgery, Surgical History Other: TUBAL LIGATION Social History Social History: Negative, Lives with family Female( History) LMP: Nov 14, 2024 ROS Dictation CONSTITUTIONAL: Negative except for HPI HEAD/FACE: Negative except for HPI EENT: Negative except for HPI RESPIRATORY: Negative except for HPI GASTROINTESTINAL/ABDOMINAL: Negative except for HPI GENITOURINARY: Negative except for HPI MUSCULOSKELETAL: Negative except for HPI INTEGUMENTARY: Negative except for HPI NEUROLOGICAL/PSYCH: Negative except for HPI HEMATOLOGIC/LYMPHATIC: Negative except for HPI All Systems Negative, Except as noted above. 13 point review of systems assessed and all negative except for above. Physical Exam Physical Exam Dictation Vital Signs reviewed General Appearance: Alert, oriented x 3, no acute distress, well developed, nourished. Head and Face: non-traumatic. Eyes: PERRL, pink conjunctivas, eyelid no trauma, anterior chamber with arcus senilis. Ears: Pinnas intact and no signs of trauma or erythema ear canals clear and no discharge TM no erythema Nose: No discharge, no bleeding. Oropharynx: Mouth normal, tongue pink, pharynx clear,no erythema, tonsils no exudates, no abscesses noted, mucous membrane moist Neck: Supple, non-tender, no thyromegaly, no masses, no JVD, no bruits Breast:Deferred Chest:No tenderness, no crepitus, no paradoxical movement, no retractions Lungs:Clear, well-ventilated, symmetric, no rales, no wheezing, no rhonchi, no stridor, good breath sounds bilaterally Heart: Regular rate, regular rhythm, no murmur, no gallops Vascular: no peripheral edema, Abdomen: Soft, positive bowel sounds, nondistended, no guarding, nontender, no rebound, no masses no hepatomegaly, no splenomegaly, no Price's sign, no hernias. Rectal: Deferred Genital: Deferred Neurological: Normal speech, motor function intact, sensory function intact Musculoskeletal: Neck nontender, full range of motion, back nontender, full range of motion, Extremities: nontender, full range of motion Skin: Color pink, dry, no turgor, no rash, no lacerations, no abrasions, no contusions. Lymphatic: Deferred Results Laboratory and Microbiology Lab and Micro Result Laboratory Tests Test 11/28/24 23:15 11/29/24 00:07 11/29/24 00:25 Influenza Type A Antigen Negative For Type A Influenza Type B Antigen Negative For Type B SARS-CoV-2, RNA, NAAT NEGATIVE SARS CoV-2 Group A Streptococcus Rapid negative (NEGATIVE) White Blood Count 6.0 K/uL (4.8-10.8) Red Blood Count 4.44 MIL/uL (4.00-5.50) Hemoglobin 14.2 g/dL (12.0-16.0) Hematocrit 40.6 % (36-48) Mean Corpuscular Volume 91.4 fL (79-99) Mean Corpuscular Hemoglobin 32.0 pg (27.0-33.0) Mean Corpuscular Hemoglobin Concent 35.0 g/dL (32.0-36.0) Red Cell Distribution Width 12.1 % (11.0-15.5) Platelet Count 175 K/uL (130-400) Mean Platelet Volume 10.2 fL (7.5-10.5) Immature Granulocyte % (Auto) 0.2 % (0-1) Neutrophils (%) (Auto) 62.8 % (40.0-77.0) Lymphocytes (%) (Auto) 23.3 % (21.0-51.0) Monocytes (%) (Auto) 7.1 % (3.0-13.0) Eosinophils (%) (Auto) 6.3 % (0.0-8.0) Basophils (%) (Auto) 0.3 % (0.0-5.0) Neutrophils # (Auto) 3.8 K/uL (1.8-7.7) Lymphocytes # (Auto) 1.4 K/uL (1.0-4.8) Monocytes # (Auto) 0.4 K/uL (0.1-1.0) Eosinophils # (Auto) 0.38 K/uL (0.00-0.70) Basophils # (Auto) 0.02 K/uL (0.00-0.20) Absolute Immature Granulocyte (auto 0.01 K/uL (0-1) Nucleated Red Blood Cells 0.0 % (0.0-0.19) Sodium Level 143 mmol/L (136-145) Potassium Level 3.3 mmol/L (3.5-5.1) L Chloride Level 104 mmol/L (101-111) Carbon Dioxide Level 31 mmol/L (21-32) Blood Urea Nitrogen 13 mg/dL (7-18) Creatinine 0.9 mg/dL (0.5-1.0) Glomerular Filtration Rate Calc 81 mL/min (>90) Random Glucose 107 mg/dL (70-105) H Total Calcium 8.7 mg/dL (8.5-10.1) Urine Color YELLOW (YELLOW) Urine Appearance CLEAR (CLEAR) Urine pH 6.0 (5.0-8.0) Urine Specific [place] 1.026 (1.001-1.031) Urine Protein NEGATIVE mg/dL (NEGATIVE) Urine Glucose (UA) NEGATIVE mg/dL (NEGATIVE) Urine Ketones NEGATIVE mg/dL (NEGATIVE) Urine Occult Blood +- (TRACE) (NEGATIVE) H Urine Nitrate NEGATIVE (NEGATIVE) Urine Bilirubin NEGATIVE mg/dL (NEGATIVE) Urine Urobilinogen 0.2 mg/dL (0.2-1.0) Urine Leukocyte Esterase NEGATIVE Emile/uL Urine RBC 2-5 /HPF (0-1) H Urine WBC 2-5 /HPF (0-1) H Urine Squamous Epithelial Cells FEW /HPF (0-2) Urine Bacteria RARE /HPF (None Seen) Labs Reviewed?: Yes MDM MDM: Differential diagnosis: Viral syndrome, upper respiratory infection, pneumonia There are no social concerns with this patient. Prescription drug management Prescriptions will include: Medrol pack, Tessalon Perles Medical management and examination interpretation discussions were had by me with other qualified healthcare professionals as indicated for the patient's care. ED Course Orders Procedure Category Date Status Time Covid Rna Naat LAB 11/28/24 Complete 23:13 Influenza Type A & B, LAB 11/28/24 Complete Rapid 23:13 Rapid (Group A Strep) LAB 11/28/24 Complete 23:13 Chest 1vw RAD 11/28/24 Taken 23:52 Cbc With Differential LAB 11/28/24 Complete 23:52 Basic Metabolic Panel LAB 11/28/24 Complete 23:52 Urinalysis Profile LAB 11/28/24 Complete 23:52 Dexamethasone 4mg/Ml PHA 11/29/24 Complete 1ml Vial (Dexametha 00:00 Current Medications Medications (Trade) Dose Ordered Sig/Juan Luis Route PRN Reason Start Time Stop Time Status Last Admin Dose Admin Dexamethasone Sodium Phosphate (dexaMETHasone 4MG/ML 1ML VIAL) 4 mg ONCE ONCE IM 11/29/24 00:00 11/29/24 00:01 DC 11/29/24 00:07 Vital Signs Date Time Temp Pulse Resp B/P (MAP) Pulse Ox O2 Delivery O2 Flow Rate FiO2 11/29/24 00:21 100.2 102 18 136/84 98 Room Air* 0 21 11/28/24 23:12 100.2 102 20 139/99 96 Room Air DX & DISP Disposition: Discharge Departure Impression: Primary Impression: Viral illness Additional Impression: Upper respiratory infection Condition: Stable Scripts Benzonatate (Tessalon Perles) 100 Mg Cap 100 MG PO TID for cough, #30 CAP 0 Refills Prov: KENROY MURPHY 11/29/24 Methylprednisolone (Medrol) 4 Mg Tab.ds.pk 1 TAB PO AD for 6 Days, #21 TAB 0 Refills 6 on day 1 then reduce by one tablet daily until gone Prov: KENROY MURPHY 11/29/24 Additional Instructions: Your blood work today is unremarkable. You have tested negative for influenza a, influenza B, COVID-19, and strep. Your chest x-ray does not show any evidence of pneumonia. Your symptoms are most likely viral in nature. Follow up with your primary care doctor in 2-3 days for repeat evaluation. Referrals: SELF,REFERRAL (PCP) I have reviewed the case, and I agree with, Diagnosis and Plan I performed the substantive portion of the visit. I have reviewed and personally made and approve the management plan that is documented in the note by myself or the BEREKET. I acknowledge for responsibility for the patient's management plan. KENROY MURPHY Nov 29, 2024 00:54
[2024-11-29 01:25] VITALS: BP 128/76; PULSE 106; RESP 20; TEMP 99; O2SAT 99
--- NOTE | 2024-11-29 08:59 | HMCIMG ---
CHEST 1VW HISTORY: Pneumonia COMPARISON: None FINDINGS: A frontal projection of the chest was obtained. Mild left lung pulmonary infiltrates are seen. The heart is borderline enlarged. Mild degenerative changes are seen. No evidence of aortic calcification is seen. IMPRESSION: 1. Mild left lung pulmonary infiltrates
== END 2024-11-29 01:37 | disposition home or self-care (01) ==
LOC: EDH 23:11
DX: J06.9 Acute upper respiratory infection, unspecified (principal); B34.9 Viral infection, unspecified; E11.9 Type 2 diabetes mellitus without complications; I10 Essential (primary) hypertension; J45.909 Unspecified asthma, uncomplicated; Z20.822 Contact with and (suspected) exposure to COVID-19; Z79.4 Long term (current) use of insulin; Z79.84 Long term (current) use of oral hypoglycemic drugs; Z90.49 Acquired absence of other specified parts of digestive tract; Z98.51 Tubal ligation status; Z98.890 Other specified postprocedural states
CPT/HCPCS: 99284; 71045; 87635; 80048; 85025; 87880; 87804 ×2; 81001; 36415; 96372; J1100

== ENCOUNTER 2025-03-09 23:54 | Emergency (ER) | payer BC ==
[~2025-03-09] VITALS: Ht 147.3 cm; Wt 87.1 kg
[~2025-03-09 23:54] MED LIST changes: +BENZ-39 PO; +METH4TAB3 PO
--- NOTE | 2025-03-10 00:06 | ERN ---
ED Note History of Present Illness Stated Complaint: C/O ABD PAIN RADIATING TO BACK WITH NAUSEA Chief Complaint: Abdominal Pain Time Seen by MD: 23:55 Time Seen by Midlevel: 23:55 Dictation: The patient is a 44-year-old female with a history of diabetes, gastric bypass in September 30, 2024 who presents to the emergency department with complaints of epigastric abdominal pain that radiates to the back associated with nausea nonbloody vomiting. Patient reports she had a bowel movement today. Denies any fevers. Allergies: Coded Allergies: No Known Drug Allergies (Unverified Allergy, Unknown, 10/22/22) Home Meds Active Scripts Benzonatate (Tessalon Perles) 100 Mg Cap, 100 MG PO TID for cough, #30 CAP 0 Refills Prov:KENROY MURPHY 11/29/24 Methylprednisolone (Medrol) 4 Mg Tab.ds.pk, 1 TAB PO AD for 6 Days, #21 TAB 0 Refills 6 on day 1 then reduce by one tablet daily until gone Prov:KENROY MURPHY 11/29/24 Reported Medications Insulin Glargine,Hum.rec.anlog (Lantus Solostar) 100 Unit/Ml (3 Ml) Insuln.pen, 25 UNIT SQ DAILY, SYRINGE 09/28/24 [Breyna] No Conflict Check, 1 PUFF IH BID 09/28/24 Atorvastatin Calcium (LIPITOR) 40 Mg Tablet, 40 MG PO HS, TAB 09/28/24 Empagliflozin (Jardiance) 25 Mg Tablet, 25 MG PO DAILY, TAB 09/28/24 [Voquezna] No Conflict Check, 20 MG PO HS 09/28/24 Montelukast Sodium (Montelukast Sodium) 10 Mg Tablet, 10 MG PO HS, TAB 09/28/24 Metformin HCl (Metformin HCl) 500 Mg Tablet, 500 MG PO BID, TAB 09/28/24 Past Medical History Past Medical History: Diabetes-Type II Additional Past Medical Hx: MRSA Surgical History: Other Surgical History Other: GASTRIC SLEEVE Social History: Negative, Lives with family LMP: Mar 05, 2025 RN Note Reviewed/Agreed w/PFSH: Yes Review of System Dictation Constitutional: Negative for fever,chills, and weight loss Eyes: Negative for injury, pain,redness, and discharge ENT: Negative for injury,pain or swelling Cardiovascular: Negative for chest pain, palpitations, and edema Respiratory: Negative for shortness of breath, cough, and wheezing, Abdomen/GI: Negative for diarrhea, and constipation positive for abdominal pain, nausea, vomiting, Back: Negative for injury and pain : Negative for injury, bleeding and discharge MS/Extremity: Negative for injury and deformity Skin: Negative for rash, and discoloration Neuro: Negative for headache, weakness, numbness, tingling, and seizure Psych: Negative for suicide ideation, homicidal ideation, and hallucinations Initial Vital Sign VS Vital Signs Date Time Temp Pulse Resp B/P (MAP) Pulse Ox O2 Delivery O2 Flow Rate FiO2 03/09/25 23:55 97.9 75 20 142/86 99 Room Air 03/10/25 00:28 0 21 Physical Exam Dictation Vital Signs reviewed General Appearance: Alert, oriented x 3, no acute distress, well developed, nourished. Head and Face: non-traumatic. Eyes: PERRL, pink conjunctivas, eyelid no trauma, anterior chamber with arcus senilis. Ears: Pinnas intact and no signs of trauma or erythema ear canals clear and no discharge TM no erythema Nose: No discharge, no bleeding. Oropharynx: Mouth normal, tongue pink. pharynx clear,no erythema, tonsils no exudates, no abscesses noted, mucous membrane moist Neck: Supple, non-tender, no thyromegaly, no masses, no JVD, no bruits Breast:Deferred Chest:No tenderness, no crepitus, no paradoxical movement, no retractions Lungs:Clear, well-ventilated, symmetric, no rales, no wheezing, no rhonchi, no stridor, good breath sounds bilaterally Heart: Regular rate, regular rhythm, no murmur, no gallops Vascular: no peripheral edema, Abdomen: Soft, positive bowel sounds, nondistended, no guarding, Generalized tenderness, no rebound, no masses no hepatomegaly, no splenomegaly, no Price's sign, no hernias. Rectal: Deferred Genital: Deferred Neurological: Normal speech, motor function intact, sensory function intact Musculoskeletal: Neck nontender, full range of motion, back nontender, full range of motion, Extremities: nontender, full range of motion Skin: Color pink, dry, no turgor, no rash, no lacerations, no abrasions, no contusions. Lymphatic: Deferred Results (Laboratory/Radiology) Laboratory/Radiology Laboratory Tests Test 03/10/25 00:25 03/10/25 01:59 White Blood Count 6.9 K/uL (4.8-10.8) Red Blood Count 4.32 MIL/uL (4.00-5.50) Hemoglobin 13.8 g/dL (12.0-16.0) Hematocrit 39.2 % (36-48) Mean Corpuscular Volume 90.7 fL (79-99) Mean Corpuscular Hemoglobin 31.9 pg (27.0-33.0) Mean Corpuscular Hemoglobin Concent 35.2 g/dL (32.0-36.0) Red Cell Distribution Width 11.4 % (11.0-15.5) Platelet Count 223 K/uL (130-400) Mean Platelet Volume 10.1 fL (7.5-10.5) Immature Granulocyte % (Auto) 0.1 % (0-1) Neutrophils (%) (Auto) 46.1 % (40.0-77.0) Lymphocytes (%) (Auto) 40.4 % (21.0-51.0) Monocytes (%) (Auto) 5.8 % (3.0-13.0) Eosinophils (%) (Auto) 7.2 % (0.0-8.0) Basophils (%) (Auto) 0.4 % (0.0-5.0) Neutrophils # (Auto) 3.2 K/uL (1.8-7.7) Lymphocytes # (Auto) 2.8 K/uL (1.0-4.8) Monocytes # (Auto) 0.4 K/uL (0.1-1.0) Eosinophils # (Auto) 0.50 K/uL (0.00-0.70) Basophils # (Auto) 0.03 K/uL (0.00-0.20) Absolute Immature Granulocyte (auto 0.01 K/uL (0-1) Nucleated Red Blood Cells 0.0 % (0.0-0.19) Sodium Level 142 mmol/L (136-145) Potassium Level 3.3 mmol/L (3.5-5.1) L Chloride Level 106 mmol/L (101-111) Carbon Dioxide Level 30 mmol/L (21-32) Blood Urea Nitrogen 11 mg/dL (7-18) Creatinine 0.7 mg/dL (0.5-1.0) Glomerular Filtration Rate Calc 110 mL/min (>90) Random Glucose 86 mg/dL (70-105) Total Calcium 8.4 mg/dL (8.5-10.1) L Total Bilirubin 0.4 mg/dL (0.2-1.0) Direct Bilirubin 0.1 mg/dL (0.0-0.3) Aspartate Amino Transf (AST/SGOT) 17 U/L (10-37) Alanine Aminotransferase (ALT/SGPT) 32 U/L (12-78) Alkaline Phosphatase 108 U/L (50-136) Total Creatine Kinase 83 U/L (21-232) # Troponin I High Sensitivity 5 ng/L (4-50) Total Protein 6.6 g/dL (6.0-8.3) Albumin 3.5 g/dL (3.5-5.0) Lipase 30 U/L (16-77) Urine Color YELLOW (YELLOW) Urine Appearance CLEAR (CLEAR) Urine pH 6.0 (5.0-8.0) Urine Specific [place] 1.032 (1.001-1.031) Urine Protein NEGATIVE mg/dL (NEGATIVE) Urine Glucose (UA) NEGATIVE mg/dL (NEGATIVE) Urine Ketones NEGATIVE mg/dL (NEGATIVE) Urine Occult Blood NEGATIVE (NEGATIVE) Urine Nitrate NEGATIVE (NEGATIVE) Urine Bilirubin NEGATIVE mg/dL (NEGATIVE) Urine Urobilinogen 0.2 mg/dL (0.2-1.0) Urine Leukocyte Esterase NEGATIVE Emile/uL Urine HCG, Qualitative NEGATIVE (NEGATIVE) Labs Reviewed?: Yes EKG: (+) rhythm (Sinus rhythm) EKG Comment: Date:03/10/2025 Time:0022 Ventricular rate:64 CT interval:158 QRS duration:103 QT/QTc:429/42 EKG interpretation: Sinus rhythm Reviewed by ED Attending no STEMI ED Course ED Course Orders Procedure Category Date Status Time Cbc With Differential LAB 03/09/25 Complete 23:57 Troponin I High LAB 03/09/25 Complete Sensitivity 23:57 ,Urine Test LAB 03/09/25 Complete 23:57 Urinalysis Profile LAB 03/09/25 Complete 23:57 12 Lead Ekg Tracing- EKG 03/09/25 Logged Technical 23:57 0.9%Nacl 1000ml (Ns PHA 03/10/25 Complete 1000ml) 00:00 Morphine 4mg Syg PHA 03/10/25 Complete (Morphine 4mg Syg) 00:00 Ondansetron 4mg Inj PHA 03/10/25 Complete (Zofran 4mg Inj) 00:00 Pantoprazole 40mg Inj PHA 03/10/25 Complete (Protonix 40mg Inj 00:00 Creatine Kinase, Total LAB 03/09/25 Complete 23:57 Lipase LAB 03/09/25 Complete 23:57 Basic Metabolic Panel LAB 03/09/25 Complete 23:57 Hepatic Function Panel LAB 03/09/25 Complete 23:57 Ct Abdomen/Pelvis CT 03/10/25 Taken W/Contrast 02:11 Iohexol (Omnipaque) PHA 03/10/25 Complete 03:06 Current Medications Medications (Trade) Dose Ordered Sig/Juan Luis Route PRN Reason Start Time Stop Time Status Last Admin Dose Admin Iohexol (Omnipaque) 35,000 mg STK-MED ONCE IV 03/10/25 03:06 03/10/25 03:07 DC Morphine Sulfate (morPHINE 4MG SYG) 4 mg ONCE ONCE IVP 03/10/25 00:00 03/10/25 00:01 DC 03/10/25 00:37 Ondansetron HCl (zoFRAN 4MG INJ) 4 mg ONCE ONCE IVP 03/10/25 00:00 03/10/25 00:01 DC 03/10/25 00:36 Pantoprazole Sodium (PROTonix 40MG INJ) 40 mg ONCE ONCE IVP 03/10/25 00:00 03/10/25 00:01 DC 03/10/25 00:35 Sodium Chloride 1,000 ml @ 0 mls/hr ONCE ONCE IV 03/10/25 00:00 03/10/25 00:01 DC 03/10/25 00:37 Vital Signs Date Time Temp Pulse Resp B/P (MAP) Pulse Ox O2 Delivery O2 Flow Rate FiO2 03/10/25 02:01 64 12 133/81 98 Room Air* 0 21 03/10/25 00:28 97.9 62 11 132/84 98 Room Air* 0 21 03/09/25 23:55 97.9 75 20 142/86 99 Room Air Medical Decision Making MDM The patient is a 44-year-old female with a history of diabetes, gastric bypass in September 30, 2024 who presents to the emergency department with complaints of epigastric abdominal pain that radiates to the back associated with nausea nonbloody vomiting. Patient reports she had a bowel movement today. Denies any fevers. Differential diagnosis: Gastritis, gastroenteritis, pancreatitis, bowel obstruction, electrolyte imbalance, ACS Need for hospitalization: Patient does not meet criteria for hospitalization. There are no social concerns with this patient. Patient's laboratory analysis is negative for acute problems. Patient's CT scan of her abdomen does not show any acute intra-abdominal disease processes either. Patient states she is feeling better I will discharge her home. DX & DISP Disposition: Discharge Departure Impression: Primary Impression: GERD (gastroesophageal reflux disease) Condition: Stable Scripts Omeprazole (Omeprazole) 20 Mg Capsule.dr 1 CAP PO DAILY for 30 Days, #30 CAP 0 Refills Prov: ZEESHAN SCHERER MD 03/10/25 Additional Instructions: You have stated that you feel better now. I do not know if the reason your feeling better is the proton pump inhibitors or the fluids that we gave you. I recommend drinking enough fluids so that your urine runs clear at least once a d ay. And you probably could start taking proton pump inhibitors each night such as omeprazole. Omeprazole can be purchased [id number] or you can get a prescription from your primary care physician. I have sent a prescription for omeprazole to your pharmacy. Referrals: SELF,REFERRAL (PCP) JENIFFER BUSBY Mar 10, 2025 00:06 ZEESHAN SCHERER MD Mar 10, 2025 04:08
--- NOTE | 2025-03-10 00:12 | NUR ---
PT CARE ASSUMED AT THIS TIME
[2025-03-10] MEDS: 0.9%NACL 1000ML 1,000 ML IV ONE (00:37)
[2025-03-10 00:52] LABS: IMMATURE GRANULOCYTE ABSOLUTE 0.01 K/uL (0-1); NUCLEATED RED BLOOD CELLS 0.0 % (0.0-0.19); PLATELET COUNT (AUTO) 223 K/uL (130-400); RED BLOOD CELL COUNT(AUTO) 4.32 MIL/uL (4.00-5.50); RED CELL DISTRIBUTION WIDTH 11.4 % (11.0-15.5); WHITE BLOOD COUNT (AUTO) 6.9 K/uL (4.8-10.8)
[2025-03-10 01:01] LABS: CREATININE 0.7 mg/dL (0.5-1.0); GLOMERULAR FILTR. RATE CALC 110.0 mL/min (>90); GLUCOSE,RANDOM 86.0 mg/dL (70-105); SODIUM SERUM 142.0 mmol/L (136-145); UREA NITROGEN, BLOOD 11.0 mg/dL (7-18)
[2025-03-10 01:05] LABS: ASPARTATE AMINOTRANSFERASE 17.0 U/L (10-37); CREATINE KINASE, TOTAL 83.0 U/L (21-232); TOTAL PROTEIN, SERUM 6.6 g/dL (6.0-8.3)
[2025-03-10 02:09] LABS: APPEARANCE,URINE CLEAR (CLEAR); GLUCOSE, URINE (UA) NEGATIVE (NEGATIVE); LEUKOCYTE ESTERASE ,URINE NEGATIVE Leu/uL (NEGATIVE); NITRATE,URINE NEGATIVE (NEGATIVE); OCCULT BLOOD,URINE NEGATIVE (NEGATIVE)
[2025-03-10 02:10] LABS: HCG,QUALITATIVE URINE NEGATIVE (NEGATIVE)
[2025-03-10 02:11] LABS: ADD UA MICROSCOPIC NO
[2025-03-10] MEDS ORDERED: IOHEXOL 350 MG/ML 100ML INFUS..BTL IV ONE (03:06)
--- NOTE | 2025-03-10 04:07 | HMCIMG ---
EXAM: CT Abdomen and Pelvis with IV contrast CLINICAL HISTORY: Epigastric abdominal pain. Back pain. TECHNIQUE: Postcontrast thin collimated axial CT images of the abdomen and pelvis were obtained with sagittal and coronal reformatted images also submitted. CT scan is done according to ALARA (As Low As Reasonably Achievable). COMPARISON: CT abdomen and pelvis dated 10/14/2024. FINDINGS: Mild bibasilar atelectasis. Mild hepatomegaly and hepatic steatosis. Nonenhancing simple hepatic cysts, measuring 1.2 cm and segment 7 and 3.1 cm in segment 5. No focal abnormality within the gallbladder, pancreas, spleen, or adrenals. Nonenhancing fat density lesions in the left renal upper pole, measuring about 0.5 cm and 1.5 cm, could be angiomyolipomas. Unremarkable right kidney. Unremarkable urinary bladder. The uterus and ovaries are within normal limits. Status post gastric sleeve. No obvious bowel wall thickening, dilatation, or obstruction. The appendix is not visualized. No inflammatory changes around the cecum. Uncomplicated colonic diverticula. Small, uncomplicated fat-containing umbilical hernia. No pathological lymphadenopathy in the abdomen or pelvis. No ascites or pneumoperitoneum. No acute bony abnormality is evident. Degenerative osseous changes. IMPRESSIONS: No acute process in the abdomen or pelvis. Mild hepatomegaly and hepatic steatosis. Simple hepatic cysts. Two fat density lesions in the left renal upper pole, likely angiomyolipomas. Uncomplicated colonic diverticula. Small, uncomplicated fat-containing umbilical hernia. On comparison with the prior CT abdomen and pelvis dated 10/14/2024, there is complete interval improvement in the previously noted abdominal wall collection. The remaining findings are grossly unchanged. /[place]
[2025-03-10] MEDS ORDERED: OMEP20CA12 PO (04:08)
--- NOTE | 2025-03-10 04:34 | NUR ---
POTASSIUM LEVEL WAS ADRESSED WITH DR. SCHERER. NO ORDERS GIVEN. PT CLEARED FOR DISCHARGE PER ED MD.
[2025-03-10 04:40] VITALS: BP 128/86; PULSE 62; RESP 13; TEMP 98; O2SAT 98
--- NOTE | 2025-03-10 06:46 | EKG ---
[facility] Test Date: 2025-03-10 Test Time: 00:22:03 Pat Name: EILEEN HERNANDES Department: ED Room: Gender: F Resident Care Manager Rn: [phone] : 1980 Requested By: JENIFFER BUSBY Order Number: [id number] Reading MD: Maqrues Mejia Measurements Intervals [place] Rate: 64 P: 25 VA: 158 QRS: -18 QRSD: 103 T: -2 QT: 429 QTc: 442 Interpretive Statements Sinus rhythm Probable left ventricular hypertrophy Compared to ECG 09/28/2024 14:13:28 Intraventricular conduction delay no longer present Electronically Signed On 03-13-2025 10:42:59 CDT by Marques Mejia Please click the below link to view image of tracing.
== END 2025-03-10 04:42 | disposition home or self-care (01) ==
LOC: EDH 23:54
DX: K21.9 Gastro-esophageal reflux disease without esophagitis (principal); E11.9 Type 2 diabetes mellitus without complications; Z79.4 Long term (current) use of insulin; Z79.84 Long term (current) use of oral hypoglycemic drugs; Z86.14 Personal history of Methicillin resistant Staphylococcus aureus infection
CPT/HCPCS: 99284; 82550; 80076; 84484; 80048; 83690; 85025; 81003; 81025; 36415; 93005; 74177; 96374; 96375; 96361; J7030; J2405; J2270; J2470; Q9967

== ENCOUNTER 2025-03-20 03:41 | Emergency (ER) | payer BC ==
[~2025-03-20] VITALS: Ht 147.3 cm; Wt 85.5 kg
[~2025-03-20 03:41] MED LIST changes: +OMEP20CA12 PO
--- NOTE | 2025-03-20 05:53 | ERN ---
General Chief Complaint: Knee Injury/Swelling Stated Complaint: RT KNEE PAIN Time Seen by MD: 04:52 Source: patient History of Present Illness Initial Comments Patient is a 44-year-old female who recently had injections done into her right knee because of meniscal tears. This was four days ago. She comes in because of increased pain and swelling. No fevers no chills she is able to put some weight on it and ambulate with a walker. Timing/Duration: 1 week Allergies: Coded Allergies: No Known Drug Allergies (Unverified Allergy, Unknown, 10/22/22) Home Meds Active Scripts Omeprazole (Omeprazole) 20 Mg Capsule.dr, 1 CAP PO DAILY for 30 Days, #30 CAP 0 Refills Prov:ZEESHAN SCHERER MD 03/10/25 Benzonatate (Tessalon Perles) 100 Mg Cap, 100 MG PO TID for cough, #30 CAP 0 Refills Prov:KENROY MURPHY 11/29/24 Methylprednisolone (Medrol) 4 Mg Tab.ds.pk, 1 TAB PO AD for 6 Days, #21 TAB 0 Refills 6 on day 1 then reduce by one tablet daily until gone Prov:KENROY MURPHY 11/29/24 Reported Medications Insulin Glargine,Hum.rec.anlog (Lantus Solostar) 100 Unit/Ml (3 Ml) Insuln.pen, 25 UNIT SQ DAILY, SYRINGE 09/28/24 [Breyna] No Conflict Check, 1 PUFF IH BID 09/28/24 Atorvastatin Calcium (LIPITOR) 40 Mg Tablet, 40 MG PO HS, TAB 09/28/24 Empagliflozin (Jardiance) 25 Mg Tablet, 25 MG PO DAILY, TAB 09/28/24 [Voquezna] No Conflict Check, 20 MG PO HS 09/28/24 Montelukast Sodium (Montelukast Sodium) 10 Mg Tablet, 10 MG PO HS, TAB 09/28/24 Metformin HCl (Metformin HCl) 500 Mg Tablet, 500 MG PO BID, TAB 09/28/24 Past Medical History Past Medical History: Asthma, Diabetes-Type II, Other Medical History Other: MRSA. RT CHRONIC KNEE PAIN Past Surgical History: BTL, Bariatric Surgery Surgical History Other: GASTRIC SLEEVE Social History Social History: Negative, Lives with family Female( History) LMP: Feb 26, 2025 Constitutional: (-) chills, (-) diaphoresis, (-) fever, (-) malaise, (-) weakness, (-) other documentation EENTM: (-) eye pain, (-) blurred vision, (-) tearing, (-) double vision, (-) ear pain, (-) ear discharge, (-) nose pain, (-) nose congestion, (-) throat pain, (-) Throat swelling, (-) mouth pain, (-) tooth pain, (-) mouth swelling, (-) other documentation Respiratory: (-) cough, (-) orthopnea, (-) short of breath, (-) stridor, (-) wheezing, (-) other documentation Cardiovascular: (-) chest pain, (-) edema, (-) palpitations, (-) syncope, (-) dyspnea on exertion, (-) other documentation Gastrointestinal/Abdominal: (-) nausea, (-) vomiting, (-) diarrhea, (-) abdominal pain, (-) abdominal distention, (-) constipation, (-) rectal bleeding, (-) dark stool/melena, (-) other documentation Genitourinary: (-) vaginal discharge, (-) vaginal bleeding, (-) dysuria, (-) frequency, (-) hematuria, (-) pain, (-) other documentation Musculoskeletal: (-) Neck pain, (-) back pain, (-) Flank Pain, (-) joint pain, (-) joint swelling, (-) muscle pain, (-) muscle stiffness, (-) gout, (-) other documentation Skin: (-) laceration, (-) contusion, (-) abrasion, (-) abscess, (-) rash, (-) change in color, (-) change in hair, (-) change in nails, (-) diaphoresis, (-) dryness, (-) other documentation Physical Exam Orientation: (+) alert, (+) oriented x 3 Extremities Comment Right knee is a little bit swollen. It is not erythematous. It is ever so slightly warm. It is stable to anterior and posterior drawer sign and to medial and lateral a stress, i.e. the medial and lateral collateral ligaments are intact. MDM I ordered plain films to rule out new fractures or dislocations. Plain films are negative. The patient most likely is experiencing a cortisone flare. Or pain that normally occurs after a joint injection from the lidocaine wearing off. ED Course Orders Procedure Category Date Status Time Knee 4+Vws Rt RAD 03/20/25 Taken 04:53 Vital Signs Date Time Temp Pulse Resp B/P (MAP) Pulse Ox O2 Delivery O2 Flow Rate FiO2 03/20/25 04:25 98.2 75 18 151/81 98 Room Air* 0 21 03/20/25 03:42 98.2 70 16 154/84 100 Room Air DX & DISP Disposition: Discharge Departure Impression: Primary Impression: Knee pain, right Condition: Stable Additional Instructions: Your pain is most likely due to the injection from four days ago. The lidocaine from the injection wears off and you feel pain from the traumatic insertion of the needle. In addition there is something called a cortisone flare where there is local swelling and pain. This should resolve in the next two or three days. Treat it with ice elevation and ibuprofen. Please see your primary care physician if the pain and swelling does not decrease by early next week. Referrals: SELF,REFERRAL (PCP) ZEESHAN SCHERER MD Mar 20, 2025 05:53
[2025-03-20 06:02] VITALS: BP 148/78; PULSE 70; RESP 17; TEMP 98.2; O2SAT 98
--- NOTE | 2025-03-20 06:24 | HMCIMG ---
EXAM: CR right Knee, 3 View. CLINICAL HISTORY: pain after injection COMPARISON: None provided. FINDINGS: BONES: No acute fracture or aggressive appearing osseous lesion. JOINTS: The joint spaces show no significant degenerative disease. There is no joint effusion appreciated. SOFT TISSUES: The soft tissues are unremarkable. IMPRESSION: No acute osseous pathology evident. /[place]
== END 2025-03-20 06:11 | disposition home or self-care (01) ==
LOC: EDH 03:41
DX: M25.561 Pain in right knee (principal); J45.909 Unspecified asthma, uncomplicated; E11.9 Type 2 diabetes mellitus without complications; Z79.4 Long term (current) use of insulin; Z79.84 Long term (current) use of oral hypoglycemic drugs; Z79.899 Other long term (current) drug therapy; Z98.51 Tubal ligation status
CPT/HCPCS: 73564; 99283

== ENCOUNTER 2025-06-13 23:14 | Emergency (ER) | payer BC ==
[~2025-06-13] VITALS: Ht 147.3 cm; Wt 87.5 kg
--- NOTE | 2025-06-13 23:21 | ERN ---
ED Note History of Present Illness Stated Complaint: C/O ABD PAIN WITH N X V, SOFT [place] COLORED STOOL Chief Complaint: Abdominal Pain Time Seen by MD: 23:18 Allergies: Coded Allergies: No Known Drug Allergies (Unverified Allergy, Unknown, 10/22/22) Home Meds Active Scripts Omeprazole (Omeprazole) 20 Mg Capsule.dr, 1 CAP PO DAILY for 30 Days, #30 CAP 0 Refills Prov:ZEESHAN SCHERER MD 03/10/25 Benzonatate (Tessalon Perles) 100 Mg Cap, 100 MG PO TID for cough, #30 CAP 0 Ref ills Prov:KENROY MURPHY PAC 11/29/24 Methylprednisolone (Medrol) 4 Mg Tab.ds.pk, 1 TAB PO AD for 6 Days, #21 TAB 0 Refills 6 on day 1 then reduce by one tablet daily until gone Prov:KENROY MURPHY PAC 11/29/24 Reported Medications Insulin Glargine,Hum.rec.anlog (Lantus Solostar) 100 Unit/Ml (3 Ml) Insuln.pen, 25 UNIT SQ DAILY, SYRINGE 09/28/24 [Breyna] No Conflict Check, 1 PUFF IH BID 09/28/24 Atorvastatin Calcium (LIPITOR) 40 Mg Tablet, 40 MG PO HS, TAB 09/28/24 Empagliflozin (Jardiance) 25 Mg Tablet, 25 MG PO DAILY, TAB 09/28/24 [Voquezna] No Conflict Check, 20 MG PO HS 09/28/24 Montelukast Sodium (Montelukast Sodium) 10 Mg Tablet, 10 MG PO HS, TAB 09/28/24 Metformin HCl (Metformin HCl) 500 Mg Tablet, 500 MG PO BID, TAB 09/28/24 Past Medical History Past Medical History: Asthma, Diabetes-Type II Additional Past Medical Hx: MRSA. RT CHRONIC KNEE PAIN Surgical History: Unknown Surgical History Other: GASTRIC SLEEVE Social History: Negative, Lives with family LMP: May 25, 2025 Review of System Dictation Constitutional: Negative for fever,chills, and weight loss Eyes: Negative for injury, pain,redness, and discharge ENT: Negative for injury,pain or swelling Cardiovascular: Negative for chest pain, palpitations, and edema Respiratory: Negative for shortness of breath, cough, and wheezing, Abdomen/GI: Negative for abdominal pain, nausea, vomiting, diarrhea, and constipation Back: Negative for injury and pain : Negative for injury, bleeding and discharge MS/Extremity: Negative for injury and deformity Skin: Negative for rash, and discoloration Neuro: Negative for headache, weakness, numbness, tingling, and seizure Psych: Negative for suicide ideation, homicidal ideation, and hallucinations Initial Vital Sign VS Vital Signs Date Time Temp Pulse Resp B/P (MAP) Pulse Ox O2 Delivery O2 Flow Rate FiO2 06/13/25 23:16 97.2 89 18 140/97 98 Room Air 06/14/25 01:54 0 21 Physical Exam Dictation General: awake, alert, NAD Head/Face: Normocephalic, atraumatic Eyes: PERRL, EOMI, vision at baseline ENT: oral cavity clear, TMs clear, no signs of infection Neck: Trachea midline, supple, no nuchal rigidity Cardiovascular: RRR, normal S1/S2, No MRGs, no JVD Respiratory: CTAB, no respiratory distress, No rales or wheezes Abdomen: Soft, non-tender, non-distended, normal bowel sounds, no guarding or rebound. Skin: Warm, dry, normal turgor, no rash MS/Extremity: Pulses equal, no cyanosis, neurovascular intact, FROM Neuro: COAx4, GCS 15, strength 5/5, CN 2-12 intact, normal cerebellar exam, normal gait, Psych: Normal behavior, mood, and affect normal Results (Laboratory/Radiology) Laboratory/Radiology Laboratory Tests Test 06/13/25 23:22 06/13/25 23:25 Urine Color LIGHT-YELLOW (YELLOW) Urine Appearance CLEAR (CLEAR) Urine pH 6.0 (5.0-8.0) Urine Specific [place] 1.021 (1.001-1.031) Urine Protein NEGATIVE mg/dL (NEGATIVE) Urine Glucose (UA) NEGATIVE mg/dL (NEGATIVE) Urine Ketones NEGATIVE mg/dL (NEGATIVE) Urine Occult Blood NEGATIVE (NEGATIVE) Urine Nitrate NEGATIVE (NEGATIVE) Urine Bilirubin NEGATIVE mg/dL (NEGATIVE) Urine Urobilinogen 0.2 mg/dL (0.2-1.0) Urine Leukocyte Esterase NEGATIVE Emile/uL Urine HCG, Qualitative NEGATIVE (NEGATIVE) White Blood Count 7.7 K/uL (4.8-10.8) Red Blood Count 4.41 MIL/uL (4.00-5.50) Hemoglobin 14.2 g/dL (12.0-16.0) Hematocrit 40.7 % (36-48) Mean Corpuscular Volume 92.3 fL (79-99) Mean Corpuscular Hemoglobin 32.2 pg (27.0-33.0) Mean Corpuscular Hemoglobin Concent 34.9 g/dL (32.0-36.0) Red Cell Distribution Width 11.6 % (11.0-15.5) Platelet Count 219 K/uL (130-400) Mean Platelet Volume 9.9 fL (7.5-10.5) Immature Granulocyte % (Auto) 0.3 % (0-1) Neutrophils (%) (Auto) 53.7 % (40.0-77.0) Lymphocytes (%) (Auto) 33.9 % (21.0-51.0) Monocytes (%) (Auto) 6.1 % (3.0-13.0) Eosinophils (%) (Auto) 5.6 % (0.0-8.0) Basophils (%) (Auto) 0.4 % (0.0-5.0) Neutrophils # (Auto) 4.1 K/uL (1.8-7.7) Lymphocytes # (Auto) 2.6 K/uL (1.0-4.8) Monocytes # (Auto) 0.5 K/uL (0.1-1.0) Eosinophils # (Auto) 0.43 K/uL (0.00-0.70) Basophils # (Auto) 0.03 K/uL (0.00-0.20) Absolute Immature Granulocyte (auto 0.02 K/uL (0-1) Nucleated Red Blood Cells 0.0 % (0.0-0.19) Sodium Level 141 mmol/L (136-145) Potassium Level 3.6 mmol/L (3.5-5.1) Chloride Level 105 mmol/L (101-111) Carbon Dioxide Level 29 mmol/L (21-32) Blood Urea Nitrogen 14 mg/dL (7-18) Creatinine 0.8 mg/dL (0.5-1.0) Glomerular Filtration Rate Calc 94 mL/min (>90) Random Glucose 96 mg/dL (70-105) Total Calcium 8.7 mg/dL (8.5-10.1) Total Bilirubin 0.2 mg/dL (0.2-1.0) Aspartate Amino Transf (AST/SGOT) 14 U/L (10-37) Alanine Aminotransferase (ALT/SGPT) 26 U/L (12-78) Alkaline Phosphatase 100 U/L (50-136) Troponin I High Sensitivity < 4 ng/L (4-50) L Total Protein 6.9 g/dL (6.0-8.3) Albumin 3.5 g/dL (3.5-5.0) Lipase 38 U/L (16-77) ED Course ED Course Orders Procedure Category Date Status Time Cbc With Differential LAB 06/13/25 Complete 23:21 Comprehensive LAB 06/13/25 Complete Metabolic Panel 23:21 Troponin I High LAB 06/13/25 Complete Sensitivity 23:21 12 Lead Ekg Tracing- EKG 06/13/25 Complete Technical 23:21 Lactated Ringers PHA 06/13/25 Complete 1000ml (Lactated 23:30 Morphine 4mg Syg PHA 06/13/25 Complete (Morphine 4mg Syg) 23:30 Ondansetron 4mg Inj PHA 06/13/25 Complete (Zofran 4mg Inj) 23:30 Ct Abdomen/Pelvis W/O CT 06/13/25 Resulted Contrast 23:21 Chest 1vw RAD 06/13/25 Resulted 23:21 Lipase LAB 06/13/25 Complete 23:21 Urinalysis Profile LAB 06/13/25 Complete 23:30 ,Urine Test LAB 06/13/25 Complete 23:30 Current Medications Medications (Trade) Dose Ordered Sig/Juan Luis Route PRN Reason Start Time Stop Time Status Last Admin Dose Admin Lactated Ringer's 1,000 ml @ 0 mls/hr ONCE ONCE IV 06/13/25 23:30 06/13/25 23:31 DC 06/14/25 00:07 Morphine Sulfate (morPHINE 4MG SYG) 4 mg ONCE ONCE IVP 06/13/25 23:30 06/13/25 23:31 DC 06/14/25 00:06 Ondansetron HCl (zoFRAN 4MG INJ) 4 mg ONCE ONCE IVP 06/13/25 23:30 06/13/25 23:31 DC 06/14/25 00:07 Vital Signs Date Time Temp Pulse Resp B/P (MAP) Pulse Ox O2 Delivery O2 Flow Rate FiO2 06/14/25 01:54 98.4 61 18 144/86 97 Room Air* 0 21 06/13/25 23:16 97.2 89 18 140/97 98 Room Air Medical Decision Making MDM I told the patient about the that has the mass on her kidney. Then likely angiomyolipoma I told her to follow up with specialists could be cancers probabl y not but still needs follow up with the ultrasounds MRIs and specialists. And follow up with the PCP she is understanding of that has heard That has a nurse was in the room MDM: Differential diagnosis: Rationale: Tests considered and ordered secondary to shared decision making include: Previous outside records reviewed: Old ER visits. Risk of complication and/or morbidity or mortality of patient management: None Medications-Per medication reconciliation Need for hospitalization: Patient does not meet criteria for hospitalization. Need for emergency major/minor surgery: No There are no social concerns with this patient. Prescription drug management Prescriptions will include symptomatic care Patient's prior external medical records from other ER visits were reviewed by me as indicated. Prior testing and results from previous visits were reviewed. Prior tests were taken into account with medical decision making and resource utilization, independent historian/historians were used to obtain complete m edical history. I independently interpreted the test that were performed, results were reviewed by me and considered findings on radiology if ordered. Medical management and examination interpretation discussions were had by me with other qualified healthcare professionals as indicated for the patient's care. DX & DISP Disposition: Discharge Departure Impression: Primary Impression: Abdominal pain Additional Impression: Kidney lesion Condition: Stable Referrals: SELF,REFERRAL (PCP) TOR TINAJERO MD Jun 13, 2025 23:21
--- NOTE | 2025-06-13 23:34 | EKG ---
[facility] Test Date: 2025-06-13 Test Time: 23:32:49 Pat Name: EILEEN HERNANDES Department: [facility] Room: Gender: F Taper [employer] Floater: [id number] : 1980 Requested By: TOR TINAJERO Order Number: [id number] Reading MD: Measurements Intervals [place] Rate: 77 P: 49 AR: 144 QRS: 0 QRSD: 111 T: 23 QT: 424 QTc: 481 Interpretive Statements Sinus rhythm Low voltage, precordial leads Please click the below link to view image of tracing.
[2025-06-13 23:54] LABS: IMMATURE GRANULOCYTE ABSOLUTE 0.02 K/uL (0-1); NUCLEATED RED BLOOD CELLS 0.0 % (0.0-0.19); PLATELET COUNT (AUTO) 219 K/uL (130-400); RED BLOOD CELL COUNT(AUTO) 4.41 MIL/uL (4.00-5.50); RED CELL DISTRIBUTION WIDTH 11.6 % (11.0-15.5); WHITE BLOOD COUNT (AUTO) 7.7 K/uL (4.8-10.8)
[2025-06-14] MEDS: LACTATED RINGERS 1000ML 1,000 ML IV ONE (00:07)
[2025-06-14 00:08] LABS: ASPARTATE AMINOTRANSFERASE 14.0 U/L (10-37); CREATININE 0.8 mg/dL (0.5-1.0); GLOMERULAR FILTR. RATE CALC 94.0 mL/min (>90); GLUCOSE,RANDOM 96.0 mg/dL (70-105); SODIUM SERUM 141.0 mmol/L (136-145); TOTAL PROTEIN, SERUM 6.9 g/dL (6.0-8.3); UREA NITROGEN, BLOOD 14.0 mg/dL (7-18)
[2025-06-14 00:15] LABS: APPEARANCE,URINE CLEAR (CLEAR); GLUCOSE, URINE (UA) NEGATIVE (NEGATIVE); LEUKOCYTE ESTERASE ,URINE NEGATIVE Leu/uL (NEGATIVE); NITRATE,URINE NEGATIVE (NEGATIVE); OCCULT BLOOD,URINE NEGATIVE (NEGATIVE)
[2025-06-14 00:17] LABS: ADD UA MICROSCOPIC NO; HCG,QUALITATIVE URINE NEGATIVE (NEGATIVE)
--- NOTE | 2025-06-14 00:19 | HMCIMG ---
EXAM: CR Chest, 1 View. CLINICAL HISTORY: Not provided. COMPARISON: None provided. FINDINGS: LUNGS: The lungs show no infiltrate or other acute finding. PLEURAL SPACES: No pleural effusion or pneumothorax. MEDIASTINUM: The cardiomediastinal silhouette is within normal limits. BONES: No acute osseous abnormality. IMPRESSION: No acute cardiopulmonary pathology is evident. /[place]
--- NOTE | 2025-06-14 01:38 | HMCIMG ---
EXAM: CT Abdomen and Pelvis without IV contrast. CLINICAL HISTORY: Abdominal pain. TECHNIQUE: Thin collimated axial CT images of the abdomen and pelvis were obtained, with sagittal and coronal reformatted images also submitted. A CT scan is done according to ALARA (As Low As Reasonably Achievable). CONTRAST: None. COMPARISON: 06/02/25. FINDINGS: Unremarkable visualized lung parenchyma. No focal abnormality within the gallbladder, pancreas, spleen, or adrenals. Mild hepatomegaly. Stable cysts in the right lobe of the liver. Stable small fat density foci at the upper pole of the left kidney. There is evidence of prior gastric surgery. Colonic diverticulosis with no acute diverticulitis. There is no obvious bowel wall thickening. Bowel loops are normal in caliber without evidence of obstruction or ileus. The appendix is normal. There is no abnormality within the urinary bladder. Small umbilical hernia containing fat. Unremarkable reproductive organs. No lymphadenopathy. No free fluid. There is no acute osseous abnormality. IMPRESSIONS: No acute process in the abdomen or pelvis. Stable hepatic cysts. Stable small fat density foci at the upper pole of the left kidney, likely an angiomyolipoma. Colonic diverticulosis with no acute diverticulitis. No significant interval change. /[place]
[2025-06-14 01:54] VITALS: BP 144/86; PULSE 61; RESP 18; TEMP 98.4; O2SAT 97
== END 2025-06-14 02:11 | disposition home or self-care (01) ==
LOC: EDH 23:14
DX: E11.29 Type 2 diabetes mellitus with other diabetic kidney complication (principal); N28.9 Disorder of kidney and ureter, unspecified; R10.9 Unspecified abdominal pain; J45.909 Unspecified asthma, uncomplicated; Z79.4 Long term (current) use of insulin; Z79.84 Long term (current) use of oral hypoglycemic drugs; Z79.899 Other long term (current) drug therapy; Z86.14 Personal history of Methicillin resistant Staphylococcus aureus infection
CPT/HCPCS: 99284; 74176; 71045; 84484; 80053; 83690; 85025; 81003; 81025; 36415; 93005; 96374; 96375; J7120; J2405; J2270

== ENCOUNTER 2025-07-17 16:46 | Emergency (ER) | payer BC ==
[~2025-07-17] VITALS: Ht 147.3 cm; Wt 84.8 kg
--- NOTE | 2025-07-17 17:00 | ERN ---
General Chief Complaint: Flank Pain Stated Complaint: RT FLANK PAIN Time Seen by MD: 16:48 Source: patient History of Present Illness Initial Comments Patient is a 45-year-old female coming in complaining of right flank pain. Per patient this has been ongoing for a couple of days. He states he is worried because they told her she has a lesion in one of her kidneys before in his here for further evaluation. Allergies: Coded Allergies: No Known Drug Allergies (Unverified Allergy, Unknown, 10/22/22) Home Meds Active Scripts Omeprazole (Omeprazole) 20 Mg Capsule.dr, 1 CAP PO DAILY for 30 Days, #30 CAP 0 Refills Prov:ZEESHAN SCHERER MD 03/10/25 Benzonatate (Tessalon Perles) 100 Mg Cap, 100 MG PO TID for cough, #30 CAP 0 Refills Prov:KENROY MURPHY 11/29/24 Methylprednisolone (Medrol) 4 Mg Tab.ds.pk, 1 TAB PO AD for 6 Days, #21 TAB 0 Refills 6 on day 1 then reduce by one tablet daily until gone Prov:KENROY MURPHY 11/29/24 Reported Medications Insulin Glargine,Hum.rec.anlog (Lantus Solostar) 100 Unit/Ml (3 Ml) Insuln.pen, 25 UNIT SQ DAILY, SYRINGE 09/28/24 [Breyna] No Conflict Check, 1 PUFF IH BID 09/28/24 Atorvastatin Calcium (LIPITOR) 40 Mg Tablet, 40 MG PO HS, TAB 09/28/24 Empagliflozin (Jardiance) 25 Mg Tablet, 25 MG PO DAILY, TAB 09/28/24 [Voquezna] No Conflict Check, 20 MG PO HS 09/28/24 Montelukast Sodium (Montelukast Sodium) 10 Mg Tablet, 10 MG PO HS, TAB 09/28/24 Metformin HCl (Metformin HCl) 500 Mg Tablet, 500 MG PO BID, TAB 09/28/24 Past Medical History Past Medical History: Asthma, Diabetes-Type II Medical History Other: MRSA. RT CHRONIC KNEE PAIN Past Surgical History: Appendectomy, None Surgical History Other: GASTRIC SLEEVE, GASTRIC BYPASS, FACIAL SX Social History Social History: Negative, Lives with family ROS Dictation CONSTITUTIONAL: No chills, no fever, no weakness, no diaphoresis, no malaise. HEAD/FACE: No signs of trauma. EENT: No eye pain, no blurred vision, no tearing, no double vision, no ear pain, no ear discharge, no nose pain, no nasal congestion, no throat pain, no throat swelling, no mouth pain. RESPIRATORY: No cough, no orthopnea, no SOB, no stridor, no wheezing. CARDIOVASCULAR: No chest pain, no edema, no palpitations, no syncope. GASTROINTESTINAL/ABDOMINAL: No abdominal pain, no constipation, no diarrhea, no nausea, no vomiting. GENITOURINARY: No abnormal discharge, no dysuria, no frequent urination, no hematuria. No complaints of pain in the genitals. MUSCULOSKELETAL: back pain, no gout, no joint pain, no joint swelling, no muscle pain, no muscle stiffness, no neck pain. INTEGUMENTARY: No change in color, no change in hair/nails, no dryness, no lesion, no lumps, no rash. NEUROLOGICAL/PSYCH: No anxiety, not depressed, no emotional problem, no headache, no numbness, no pre-existing deficit, no history of seizures, no tremors, no weakness. HEMATOLOGIC/LYMPHATIC: Not anemic, no history of blood clots, no apparent bleeding, no bruising, glands not swollen. All Systems Negative, Except as Noted. Physical Exam Physical Exam Dictation VITAL SIGNS: Reviewed. GENERAL APPEARANCE: Alert, oriented x3, no acute distress, obese. HEAD AND FACE: Non-traumatic. EYES: PERRL, pink conjunctivas, eyelid no trauma, anterior chamber clear. EARS: Pinnas intact and no signs of trauma or erythema. Ear canals clear and no discharge. TMs no erythema. NOSE: No discharge, no bleeding. OROPHARYNX: Mouth normal, teeth no caries, tongue pink. Pharynx clear, no erythema. Tonsils no exudates, no abscesses noted. Mucous membrane moist. NECK: Supple, non-tender, no thyromegaly, no masses, no JVD, no bruits. BREAST: Deferred. CHEST: No tenderness, no crepitus, no paradoxical movement, no retractions. LUNGS: Clear, well-ventilated, symmetric, no rales, no wheezing, no rhonchi, no stridor, good breath sounds bilaterally. HEART: Regular rate, regular rhythm, no murmur, no gallops. VASCULAR: No peripheral edema. ABDOMEN: Soft, positive bowel sounds, nondistended, no guarding, nontender, no rebound, right CVA angle tenderness RECTAL: Deferred. GENITAL: Deferred. NEUROLOGICAL: Normal speech, gross motor function intact, gross sensory function intact. MUSCULOSKELETAL: Neck nontender, full range of motion, back nontender, full range of motion. EXTREMITIES: Nontender, full range of motion. SKIN: Color pink, dry, no turgor, no rash, no lacerations, no abrasions, no contusions. LYMPHATICS: Deferred. Results Laboratory and Microbiology Lab and Micro Result Laboratory Tests Test 07/17/25 16:54 07/17/25 17:12 Urine Color YELLOW (YELLOW) Urine Appearance CLEAR (CLEAR) Urine pH 6.0 (5.0-8.0) Urine Specific [place] 1.031 (1.001-1.031) Urine Protein NEGATIVE mg/dL (NEGATIVE) Urine Glucose (UA) NEGATIVE mg/dL (NEGATIVE) Urine Ketones NEGATIVE mg/dL (NEGATIVE) Urine Occult Blood NEGATIVE (NEGATIVE) Urine Nitrate NEGATIVE (NEGATIVE) Urine Bilirubin NEGATIVE mg/dL (NEGATIVE) Urine Urobilinogen 0.2 mg/dL (0.2-1.0) Urine Leukocyte Esterase NEGATIVE Emile/uL Urine HCG, Qualitative NEGATIVE (NEGATIVE) White Blood Count 6.0 K/uL (4.8-10.8) Red Blood Count 4.70 MIL/uL (4.00-5.50) Hemoglobin 15.1 g/dL (12.0-16.0) Hematocrit 43.4 % (36-48) Mean Corpuscular Volume 92.3 fL (79-99) Mean Corpuscular Hemoglobin 32.1 pg (27.0-33.0) Mean Corpuscular Hemoglobin Concent 34.8 g/dL (32.0-36.0) Red Cell Distribution Width 11.1 % (11.0-15.5) Platelet Count 220 K/uL (130-400) Mean Platelet Volume 10.1 fL (7.5-10.5) Immature Granulocyte % (Auto) 0.2 % (0-1) Neutrophils (%) (Auto) 45.1 % (40.0-77.0) Lymphocytes (%) (Auto) 38.6 % (21.0-51.0) Monocytes (%) (Auto) 6.5 % (3.0-13.0) Eosinophils (%) (Auto) 8.9 % (0.0-8.0) H Basophils (%) (Auto) 0.7 % (0.0-5.0) Neutrophils # (Auto) 2.7 K/uL (1.8-7.7) Lymphocytes # (Auto) 2.3 K/uL (1.0-4.8) Monocytes # (Auto) 0.4 K/uL (0.1-1.0) Eosinophils # (Auto) 0.53 K/uL (0.00-0.70) Basophils # (Auto) 0.04 K/uL (0.00-0.20) Absolute Immature Granulocyte (auto 0.01 K/uL (0-1) Nucleated Red Blood Cells 0.0 % (0.0-0.19) Sodium Level 140 mmol/L (136-145) Potassium Level 3.5 mmol/L (3.5-5.1) Chloride Level 103 mmol/L (101-111) Carbon Dioxide Level 30 mmol/L (21-32) Blood Urea Nitrogen 13 mg/dL (7-18) Creatinine 0.9 mg/dL (0.5-1.0) Glomerular Filtration Rate Calc 81 mL/min (>90) Random Glucose 103 mg/dL (70-105) Total Calcium 8.4 mg/dL (8.5-10.1) L Labs Reviewed?: Yes MDM MDM: Differential diagnosis: UTI, pyelonephritis, kidney stone, lumbar strain Rationale: Tests considered and ordered secondary to shared decision making include: Previous outside records reviewed: Old ER visits. Risk of complication and/or morbidity or mortality of patient management: None Medications-Per medication reconciliation Need for hospitalization: Patient does not meet criteria for hospitalization. Need for emergency major/minor surgery: No Patient is a 45-year-old female coming in to be evaluated for right lumbar pain. Patient states that the pain was worrying her due to being told that she had a lesion then her kidney. 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 I did advised her of the findings in the proper ongoing evaluation. In his occasion laboratory workup and urine did not disclose any acute findings patient was relieved and we will be discharged in stable condition with a diagnosis of lumbar strain. ED Course Orders Procedure Category Date Status Time ,Urine Test LAB 12/7/25 Complete 16:48 Triamcinolone Acet PHA 07/17/25 Complete 40mg/Ml 1ml (Kenalog 17:00 Orphenadrine Citrate PHA 07/17/25 Complete (Norflex) 17:00 Cbc With Differential LAB 07/17/25 Complete 16:55 Basic Metabolic Panel LAB 07/17/25 Complete 16:55 Urinalysis LAB 07/17/25 In Process W/Microscopic 16:55 Current Medications Medications (Trade) Dose Ordered Sig/Juan Luis Route PRN Reason Start Time Stop Time Status Last Admin Dose Admin Orphenadrine Citrate (Norflex) 60 mg ONCE ONCE IM 07/17/25 17:00 07/17/25 17:01 DC 07/17/25 17:41 Triamcinolone Acetonide (Kenalog 40) 40 mg ONCE ONCE IM 07/17/25 17:00 07/17/25 17:01 DC 07/17/25 17:41 Vital Signs Date Time Temp Pulse Resp B/P (MAP) Pulse Ox O2 Delivery O2 Flow Rate FiO2 07/17/25 17:28 98.6 68 18 124/79 97 Room Air* 0 21 07/17/25 16:47 98.6 83 18 163/99 98 Room Air 0 DX & DISP Disposition: Discharge Departure Impression: Primary Impression: Lumbar strain Additional Impression: Muscle strain Condition: Stable Scripts Naproxen (Naproxen) 375 Mg Tablet. 375 MG PO BID for 7 Days, #14 TAB Prov: WESTON SOLANO MD 07/17/25 Additional Instructions: FOLLOW-UP WITH PRIMARY CARE PROVIDER IN 1 TO 2 DAYS. TAKE MEDICATIONS DIRECTED HERE IN THE EMERGENCY ROOM. OKAY TO CONTINUE HOME MEDICATIONS UNLESS OTHERWISE DISCUSSED DURING YOUR VISIT IN THE EMERGENCY ROOM TODAY. RETURN TO YOUR NEAREST EMERGENCY ROOM IF SYMPTOMS WORSEN OR IF THERE IS NO IMPROVEMENT. CALL 911 IF YOU NEED IMMEDIATE ASSISTANCE. TAKE TYLENOL [id number] NEEDED AND IF NO CONTRAINDICATIONS ARE PRESENT. INCREASE ORAL HYDRATION. A WOUND CULTURE OR URINE CULTURE WAS ORDERED HERE IN THE EMERGENCY ROOM DEPARTMENT PLEASE FOLLOW-UP WITH PRIMARY CARE PROVIDER AND ADVISE THEM TO GET REPORTS FROM OUR FACILITY. IF YOU HAD ANY MOISES WRAP/SPLINTS THAT WERE APPLIED HERE, PLEASE DO NOT REMOVE THEM UNTIL YOU SEE YOUR PRIMARY CARE OR SPECIALTY. Referrals: Referrals: ADOLFO BAZAN PA-C (PCP) Time of Disposition: 18:39 WESTON SOLANO MD Jul 17, 2025 17:00
[2025-07-17 17:26] LABS: IMMATURE GRANULOCYTE ABSOLUTE 0.01 K/uL (0-1); NUCLEATED RED BLOOD CELLS 0.0 % (0.0-0.19); PLATELET COUNT (AUTO) 220 K/uL (130-400); RED BLOOD CELL COUNT(AUTO) 4.70 MIL/uL (4.00-5.50); RED CELL DISTRIBUTION WIDTH 11.1 % (11.0-15.5); WHITE BLOOD COUNT (AUTO) 6.0 K/uL (4.8-10.8)
[2025-07-17 17:32] LABS: CREATININE 0.9 mg/dL (0.5-1.0); GLOMERULAR FILTR. RATE CALC 81.0 mL/min (>90); GLUCOSE,RANDOM 103.0 mg/dL (70-105); SODIUM SERUM 140.0 mmol/L (136-145); UREA NITROGEN, BLOOD 13.0 mg/dL (7-18)
[2025-07-17] MEDS: ORPHENADRINE 60MG/2ML IM ONE (17:41)
[2025-07-17] MEDS: TRIAMCINOLONE ACETONIDE 40 MG/ML 1ML VIAL IM ONE (17:41)
[2025-07-17 18:17] LABS: APPEARANCE,URINE CLEAR (CLEAR); GLUCOSE, URINE (UA) NEGATIVE (NEGATIVE); LEUKOCYTE ESTERASE ,URINE NEGATIVE Leu/uL (NEGATIVE); NITRATE,URINE NEGATIVE (NEGATIVE); OCCULT BLOOD,URINE NEGATIVE (NEGATIVE)
[2025-07-17 18:41] LABS: SQUAMOUS EPITHELIAL CELL,UR RARE /HPF (0-2)
[2025-07-17 18:48] VITALS: BP 133/85; PULSE 69; RESP 18; TEMP 98.6; O2SAT 98
== END 2025-07-17 19:00 | disposition home or self-care (01) ==
LOC: EDH 16:46
DX: S39.012A Strain of muscle, fascia and tendon of lower back, initial encounter (principal); E11.9 Type 2 diabetes mellitus without complications; J45.909 Unspecified asthma, uncomplicated; Z79.4 Long term (current) use of insulin; Z79.84 Long term (current) use of oral hypoglycemic drugs; Z79.899 Other long term (current) drug therapy; Z90.49 Acquired absence of other specified parts of digestive tract; Z98.84 Bariatric surgery status; X58.XXXA Exposure to other specified factors, initial encounter; Y93.89 Activity, other specified; Y92.89 Other specified places as the place of occurrence of the external cause; Y99.8 Other external cause status
CPT/HCPCS: 99284; 80048; 85025; 81001; 81025; 36415; 96372 ×2; J3301; J2360

== ENCOUNTER → 2025-07-31 | Emergency (ER) | payer BC ==
[~2025-07-31] VITALS: Ht 147.3 cm; Wt 87.1 kg
[~2025-07-31] MED LIST changes: +AZIT250T PO; +GUAI5SYR PO; +NAPR-1505 PO
[2025-07-31 16:46] VITALS: BP 143/93; TEMP 99
[2025-07-31 17:06] LABS: RAPID GROUP A STREP negative (NEGATIVE)
[2025-07-31 17:11] LABS: SARS-CoV-2, RNA, NAAT NEGATIVE SARS CoV-2 (NEGATIVE)
[2025-07-31 17:17] LABS: INFLUENZA TYPE A Negative For Type A (NEGATIVE); INFLUENZA TYPE B Negative For Type B (NEGATIVE)
[2025-07-31 17:19] VITALS: PULSE 94; RESP 18
--- NOTE | 2025-07-31 18:16 | HMCIMG ---
EXAM: CR Chest, 1 View. CLINICAL HISTORY: cough COMPARISON: None provided. FINDINGS: LUNGS: There is no mass, infiltrate, or acute pulmonary abnormality. PLEURAL SPACES: No pleural effusion or pneumothorax. MEDIASTINUM: The cardiomediastinal silhouette is within normal limits. BONES: No aggressive appearing osseous lesion seen. IMPRESSION: No acute cardiopulmonary pathology is evident. /[place]
--- NOTE | 2025-07-31 19:28 | ERN ---
ED Note History of Present Illness Stated Complaint: FLU SYMPTOMS Chief Complaint: Flu Symptoms Time Seen by MD: 16:50 Time Seen by Midlevel: 16:50 Dictation: The patient is a 45-year-old female with a history of asthma, diabetes, tubal ligation, gastric sleeve gastritis who presents to the emergency department with complaints of cough, fever, chills, nasal congestion onset onset Friday. Allergies: Coded Allergies: No Known Drug Allergies (Unverified Allergy, Unknown, 10/22/22) Home Meds Active Scripts Naproxen (Naproxen) 375 Mg Tablet.dr, 375 MG PO BID for 7 Days, #14 TAB Prov:WESTON SOLANO MD 07/17/25 Omeprazole (Omeprazole) 20 Mg Capsule.dr, 1 CAP PO DAILY for 30 Days, #30 CAP 0 Refills Prov:ZEESHAN SCHERER MD 03/10/25 Benzonatate (Tessalon Perles) 100 Mg Cap, 100 MG PO TID for cough, #30 CAP 0 Refills Prov:KENROY MURPHY PAC 11/29/24 Methylprednisolone (Medrol) 4 Mg Tab.ds.pk, 1 TAB PO AD for 6 Days, #21 TAB 0 Refills 6 on day 1 then reduce by one tablet daily until gone Prov:KENROY MURPHY PAC 11/29/24 Reported Medications Insulin Glargine,Hum.rec.anlog (Lantus Solostar) 100 Unit/Ml (3 Ml) Insuln.pen, 25 UNIT SQ DAILY, SYRINGE 09/28/24 [Breyna] No Conflict Check, 1 PUFF IH BID 09/28/24 Atorvastatin Calcium (LIPITOR) 40 Mg Tablet, 40 MG PO HS, TAB 09/28/24 Empagliflozin (Jardiance) 25 Mg Tablet, 25 MG PO DAILY, TAB 09/28/24 [Voquezna] No Conflict Check, 20 MG PO HS 09/28/24 Montelukast Sodium (Montelukast Sodium) 10 Mg Tablet, 10 MG PO HS, TAB 09/28/24 Metformin HCl (Metformin HCl) 500 Mg Tablet, 500 MG PO BID, TAB 09/28/24 Past Medical History Past Medical History: Asthma, Diabetes-Type II Additional Past Medical Hx: MRSA. RT CHRONIC KNEE PAIN Surgical History: Appendectomy, BTL Surgical History Other: GASTRIC SLEEVE Social History: Negative, Lives with family RN Note Reviewed/Agreed w/PFSH: Yes Review of System Dictation Constitutional: Negative for weight loss positive for body aches, fever, chills Eyes: Negative for injury, pain,redness, and discharge ENT: Negative for injury,pain or swelling positive for nasal congestion Cardiovascular: Negative for chest pain, palpitations, and edema Respiratory: Positive for shortness of breath, cough, and wheezing, Abdomen/GI: Negative for abdominal pain, nausea, vomiting, diarrhea, and constipation Back: Negative for injury and pain : Negative for injury, bleeding and discharge MS/Extremity: Negative for injury and deformity Skin: Negative for rash, and discoloration Neuro: Negative for headache, weakness, numbness, tingling, and seizure Psych: Negative for suicide ideation, homicidal ideation, and hallucinations Initial Vital Sign VS Vital Signs Date Time Temp Pulse Resp B/P (MAP) Pulse Ox O2 Delivery O2 Flow Rate FiO2 07/31/25 16:46 99.0 94 18 143/93 99 Room Air 0 Physical Exam Dictation Vital Signs reviewed General Appearance: Alert, oriented x 3, no acute distress, well developed, nourished. Head and Face: non-traumatic. Eyes: PERRL, pink conjunctivas, eyelid no trauma, anterior chamber with arcus senilis. Ears: Pinnas intact and no signs of trauma or erythema ear canals clear and no discharge TM no erythema Nose: No discharge, no bleeding. Oropharynx: Mouth normal, tongue pink. pharynx clear,no erythema, tonsils no exudates, no abscesses noted, mucous membrane moist Neck: Supple, non-tender, no thyromegaly, no masses, no JVD, no bruits Breast:Deferred Chest:No tenderness, no crepitus, no paradoxical movement, no retractions Lungs:Clear, well-ventilated, symmetric, no rales, no wheezing, no rhonchi, no stridor, good breath sounds bilaterally Heart: Regular rate, regular rhythm, no murmur, no gallops Vascular: no peripheral edema, Abdomen: Soft, positive bowel sounds, nondistended, no guarding, nontender, no rebound, no masses no hepatomegaly, no splenomegaly, no Price's sign, no hernias. Rectal: Deferred Genital: Deferred Neurological: Normal speech, motor function intact, sensory function intact Musculoskeletal: Neck nontender, full range of motion, back nontender, full range of motion, Extremities: nontender, full range of motion Skin: Color pink, dry, no turgor, no rash, no lacerations, no abrasions, no contusions. Lymphatic: Deferred Results (Laboratory/Radiology) Laboratory/Radiology Laboratory Tests Test 07/31/25 16:48 Influenza Type A Antigen Negative For Type A Influenza Type B Antigen Negative For Type B SARS-CoV-2, RNA, NAAT NEGATIVE SARS CoV-2 Group A Streptococcus Rapid negative (NEGATIVE) Labs Reviewed?: Yes ED Course ED Course Orders Procedure Category Date Status Time Influenza Type A & B, LAB 07/31/25 Complete Rapid 16:51 Covid Rna Naat LAB 07/31/25 Complete 16:51 Rapid (Group A Strep) LAB 07/31/25 Complete 16:51 Chest 1vw RAD 07/31/25 Resulted 17:05 Ipratropium/Albuterol PHA 07/31/25 Complete Neb (Duoneb) 17:30 Methylprednisolone PHA 07/31/25 Complete Succ 125mg (Solu-Medr 17:30 Guaifenesin-Codeine PHA 07/31/25 Complete Syrup 5ml (Robitussi 17:30 Ipratropium/Albuterol PHA 07/31/25 Complete Neb (Duoneb) 17:07 Current Medications Medications (Trade) Dose Ordered Sig/Juan Luis Route PRN Reason Start Time Stop Time Status Last Admin Dose Admin Albuterol (DUOneb) 1 UDVIAL ONCE ONCE IH 07/31/25 17:30 07/31/25 17:31 DC Albuterol (DUOneb) 1 udvial STK-MED ONCE IH 07/31/25 17:07 07/31/25 17:08 DC 07/31/25 17:21 Guaifenesin/ Codeine Phosphate (RobiTUSSin AC 5 ML SYRUP) 10 ml ONCE ONCE PO 07/31/25 17:30 07/31/25 17:31 DC 07/31/25 18:33 Methylprednisolone Sodium Succinate (Solu-medROL 125MG) 125 mg ONCE ONCE IM 07/31/25 17:30 07/31/25 17:31 DC 07/31/25 18:33 Vital Signs Date Time Temp Pulse Resp B/P (MAP) Pulse Ox O2 Delivery O2 Flow Rate FiO2 07/31/25 17:19 94 18 07/31/25 16:46 99.0 94 18 143/93 99 Room Air 0 Medical Decision Making MDM The patient is a 45-year-old female with a history of asthma, diabetes, gastritis who presents to the emergency department with complaints of cough, fever, chills, nasal congestion onset onset Friday. Serology was negative. Chest x-ray showed no infiltrates. On physical exam patient is in no acute distress, nontoxic appearance, stable vital signs, no hypoxemia no tachycardia. Patient's lungs are clear. Patient will be discharged to follow up with PCP. Differential diagnosis: Upper respiratory infection, pneumonia, strep throat Need for hospitalization: Patient does not meet criteria for hospitalization. There are no social concerns with this patient. DX & DISP Disposition: Discharge Departure Impression: Primary Impression: URI (upper respiratory infection) Additional Impression: Pneumonitis Condition: Stable Scripts Guaifenesin/Dextromethorphan (Guaifenesin Dm Syrup) 100 Mg-10 Mg/5 Ml Syrup 5 ML PO TID for cough and congestion for 8 Days, #120 ML 0 Refills Prov: JENIFFER BUSBYP 07/31/25 Methylprednisolone (Medrol) 4 Mg Tab.ds.pk 4 MG PO AD for 6 Days, #1 PACK Day 1: Take 2 tablets before breakfast,1 tablet after lunch and supper, and 2 tablets at bedtime. Day 2: Take1 tablet before breakfast,1 tablet after lunch,1 tablet after supper, and 2 tablets at bedtime. Day 3: Take 1 tablet before breakfast, 1 tablet after lunch, 1 tablet after supper, and 1 tablet at bedtime. Day 4: Take 1 tablet before breakfast, 1 tablet after lunch, and 1 tablet at bedtime. Day 5: Take1 tablet before breakfast and 1 tablet at bedtime. Day 6: Take 1 tablet before breakfast. Prov: JENIFFER BUSBY 07/31/25 Azithromycin (Zithromax) 250 Mg Tablet 250 MG PO AD for 5 Days, #6 TAB Take 2 250 mg tablets on day 1, then take 1 250mg tablets daily for 4 days Prov: JENIFFER BUSBY 07/31/25 Additional Instructions: Please take your medications as prescribed. Follow up with the primary doctor in 1-2 days. If anything worsens please return to ER. FOLLOW-UP WITH PRIMARY CARE PROVIDER IN 1 TO 2 DAYS. TAKE MEDICATIONS DIRECTED HERE IN THE EMERGENCY ROOM. OKAY TO CONTINUE HOME MEDICATIONS UNLESS OTHERWISE DISCUSSED DURING YOUR VISIT IN THE EMERGENCY ROOM TODAY. RETURN TO YOUR NEAREST EMERGENCY ROOM IF SYMPTOMS WORSEN OR IF THERE IS NO IMPROVEMENT. CALL 911 IF YOU NEED IMMEDIATE ASSISTANCE. TAKE TYLENOL [id number] NEEDED AND IF NO CONTRAINDICATIONS ARE PRESENT. INCREASE ORAL HYDRATION. A WOUND CULTURE OR URINE CULTURE WAS ORDERED HERE IN THE EMERGENCY ROOM DEPARTMENT PLEASE FOLLOW-UP WITH PRIMARY CARE PROVIDER AND ADVISE THEM TO GET REPEAT PORTS FROM OUR FACILITY. IF YOU HAD ANY MOISES WRAP/SPLINTS THAT WERE APPLIED HERE, PLEASE DO NOT REMOVE THEM UNTIL YOU SEE YOUR PRIMARY CARE OR SPECIALTY. Referrals: ADOLFO BAZAN PA-C (PCP) Time of Disposition: 19:27 I have reviewed the case, and I agree with, Diagnosis and Plan JENIFFER BUSBYP Jul 31, 2025 19:28
== END ==
LOC: EDH 16:44
DX: J06.9 Acute upper respiratory infection, unspecified (principal); J98.4 Other disorders of lung; E11.9 Type 2 diabetes mellitus without complications; J45.909 Unspecified asthma, uncomplicated; G89.29 Other chronic pain; Z79.899 Other long term (current) drug therapy; Z79.84 Long term (current) use of oral hypoglycemic drugs; Z79.4 Long term (current) use of insulin; Z98.51 Tubal ligation status; Z90.49 Acquired absence of other specified parts of digestive tract; Z86.14 Personal history of Methicillin resistant Staphylococcus aureus infection; Z20.822 Contact with and (suspected) exposure to COVID-19
CPT/HCPCS: 99284; 71045; 87635; 87880; 87804 ×2; 96372; 94640; J2919